=== PATIENT | male | born 1955 | race Caucasian/White ===

== ENCOUNTER 2017-12-26 16:01 | Inpatient (IN) | payer OTHER ==
[2017-12-26 19:16] VITALS: BMI 33.7
--- NOTE | 2017-12-26 22:17 | HP ---
Admission ROS [facility] - [facility] Chief Complaint: SEEKING REHAB SERVICES AFTER DETOX Allergies/Adverse Reactions: Allergies Allergy/AdvReac Type Severity Reaction Status Date / Time Fish Containing Products AdvReac Verified 12/26/17 22:19 History of Present Illness: 62 Y.O. MALE WITH LONG HX/O ALCOHOLISM HERE FOR REHAB. CLIENT WAS REFERRED BY [facility] AFTER DETOX FOR ALCOHOLISM. THIS IS CLIENTS FIRST TIME HERE. 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 DENIES HX/O SEIZURES, DT 'S SI. DOES RPEORTS HX/O BLACK OUTS. Exam Limitations: No Limitations - Ebola screening Have you traveled outside of the country in the last 21 days: No (N) Have you had contact with anyone from an Ebola affected area: No Have you been sick,other than usual withdrawal symptoms: No Do you have a fever: No - Review of Systems Constitutional: No Symptoms Reported EENT: reports: Nose Congestion Respiratory: reports: No Symptoms reported Cardiac: reports: No Symptoms Reported GI: reports: No Symptoms Reported : reports: No Symptoms Reported Musculoskeletal: reports: No Symptoms Reported Integumentary: reports: No Symptoms Reported Neuro: reports: No Symptoms reported Endocrine: reports: No Symptoms Reported Hematology: reports: No Symptoms Reported Psychiatric: reports: Depressed Other Systems: Reviewed and Negative Patient History - Patient Medical History Hx Anemia: No Hx Asthma: No Hx Chronic Obstructive Pulmonary Disease (COPD): No Hx Cancer: No Hx Cardiac Disorders: No Hx Congestive Heart Failure: No Hx Hypertension: Yes Hx Hypercholesterolemia: Yes Hx Pacemaker: No HX Cerebrovascular Accident: No Hx Seizures: No Hx Dementia: No Hx Diabetes: No Hx Gastrointestinal Disorders: No Hx Liver Disease: No Hx Genitourinary Disorders: No Hx Sexually Transmitted Disorders: No Hx Renal Disease (ESRD): No Hx Thyroid Disease: No Hx Human Immunodeficiency Virus (HIV): No Hx Hepatitis C: No Hx Depression: Yes Hx Suicide Attempt: No Hx Bipolar Disorder: No Hx Schizophrenia: No Other Medical History: DENIES - Patient Surgical History Past Surgical History: No - PPD History Previous Implant?: Yes Documented Results: Positive w/proof Implanted On Prior [facility] Admission?: No PPD to be Administered?: No - Smoking Cessation Smoking history: Former smoker Have you smoked in the past 12 months: Yes Aproximately how many cigarettes per day: 1 (LAST SMOKED 10 DAYS AGO) Cigars Per Day: 0 Hx Chewing Tobacco Use: No Initiated information on smoking cessation: Yes 'Breaking Loose' booklet given: 12/26/17 - Substance & Tx. History Hx Alcohol Use: Yes Hx Substance Use: Yes Substance Use Type: Alcohol, Cocaine Hx Substance Use Treatment: Yes ([facility]) - Substances Abused VODKA Route: Oral Frequency: 3-6 times per week Amount used: 3 PINTS/ 3 CASES OF COOLERS Age of first use: 36 Date of Last Use: 12/22/17 COCAINE Route: Inhalation Frequency: 1-2 times per week Amount used: 300 DOLLARS Age of first use: 36 Date of Last Use: 12/17/17 Family Disease History - Family Disease History Family Disease History: Other: Father (ALCOHOLISM) Admission Physical Exam [facility] - Vital Signs Vital Signs: Vital Signs - 24 hr 12/26/17 19:14 Temperature 97.7 F Pulse Rate 86 Respiratory 18 Rate Blood Pressure 132/81 - Physical General Appearance: Yes: No Apparent Distress, Appropriately Dressed, Anxious HEENTM: Yes: EOMI, Normocephalic, Normal Voice, BETSY, Pharynx Normal, Nasal Congestion Respiratory: Yes: Chest Non-Tender, Lungs Clear, Normal Breath Sounds, No Respiratory Distress, No Accessory Muscle Use Neck: Yes: No masses,lesions,Nodules, Supple, Trachea in good position Breast: Yes: Breast Exam Deferred Cardiology: Yes: Regular Rhythm, Regular Rate, S1, S2 Abdominal: Yes: Normal Bowel Sounds, Non Tender, Soft, Protuberent Genitourinary: Yes: Within Normal Limits Back: Yes: Normal Inspection Musculoskeletal: Yes: full range of Motion, Gait Steady Extremities: Yes: Normal Inspection, Normal Range of Motion, Non-Tender Neurological: Yes: paint technician II-XII NML intact, Fully Oriented, Alert Integumentary: Yes: Normal Color, Dry, Warm Lymphatic: Yes: Within Normal Limits - Diagnostic (1) Uncomplicated alcohol dependence Current Visit: Yes Status: Chronic (2) Cocaine abuse, uncomplicated Current Visit: Yes Status: Chronic (3) Nicotine abuse Current Visit: Yes Status: Suspected (4) HTN (hypertension) Current Visit: Yes Status: Chronic Qualifiers: Hypertension type: essential hypertension Qualified Code(s): I10 - Essential (primary) hypertension (5) GERD (gastroesophageal reflux disease) Current Visit: Yes Status: Chronic (6) HLD (hyperlipidemia) Current Visit: Yes Status: Chronic (7) History of positive PPD Current Visit: Yes Status: Chronic (8) Nasal sinus congestion Current Visit: Yes Status: Chronic Cleared for Admission [facility] - Detox or Rehab Detox Regimen/Protocol: Not Applicable Claeared for Rehab Admission: No [facility] Breath Alcohol Content Breath Alcohol Content: 0 Urine Drug Screen - Results Drug Screen Negative: No Urine Drug Screen Results: BZO-Benzodiazepines Inpatient Rehab Admission - Initial Determination Are CD services needed?: Yes Free of communicable disease: Yes Not in need of hospitalization: Yes - Rehab Admission Criteria Previous failed treatment: Yes Poor recovery environment: Yes Comorbidities: Yes Lacks judgement: Yes Patient is meeting Inpatient Rehab admission criteria:: Yes
[2017-12-26] MEDS ORDERED: MAG HYDROX/AL HYDROX/SIMETH 30 ML UNIT-DOSE CUP PO PRN (22:37)
[2017-12-26] MEDS ORDERED: LOPERAMIDE HCL 2 MG CAPSULE PO PRN (22:37)
[2017-12-26] MEDS ORDERED: ACETAMINOPHEN 325 MG TABLET (FP) PO PRN (22:37)
[2017-12-26] MEDS ORDERED: MAGNESIUM HYDROX 2400MG/30ML ORAL SUSPENSION 30 ML CUP PO PRN (22:37)
[2017-12-26] MEDS ORDERED: NICOTINE POLACRILEX 2 MG GUM BC PRN (22:37)
[2017-12-26] MEDS ORDERED: guaiFENesin/D-METHORPHAN HB 10 ML UNIT-DOSE CUPS PO PRN (22:37)
[2017-12-26] MEDS ORDERED: MAGNESIUM CITRATE 300 ML BOTTLE PO PRN (22:37)
[2017-12-27] MEDS: MENTHOL/PHENOL 1 EACH UD MM PRN ×2 (00:30→08:47)
[2017-12-27] MEDS: P-EPHED 60MG/TRIPROLIDI 2.5MG TABLET PO PRN ×3 (00:30→14:57)
[2017-12-27] MEDS: MELATONIN 5 MG TABLETS PO PRN ×2 (00:30→21:23)
[2017-12-27] MEDS: IBUPROFEN 400 MG TABLET (FP) PO PRN (00:30)
[2017-12-27] MEDS: GEMFIBROZIL 600 MG TABLET (FP) PO SCH ×2 (06:45→17:04)
[2017-12-27] MEDS: PRENATAL VITAMINS W/ FOLIC ACID TABLET (FP) PO SCH (09:23)
[2017-12-27] MEDS: PANTOPRAZOLE 20 MG TABLET (FP) PO SCH (09:23)
[2017-12-27] MEDS: LOSARTAN POTASSIUM 50 MG TABLET (FP) PO SCH (09:23)
[2017-12-27] MEDS: ASPIRIN 81 MG CHEWABLE TABLETS PO SCH (09:23)
[2017-12-27 10:40] LABS: URINE APPEARANCE CLEAR; URINE BILIRUBIN NEGATIVE (<2.0 mg/dL); URINE COLOR YELLOW; URINE GLUCOSE (UA) NEGATIVE (NEGATIVE); URINE KETONE NEGATIVE (NEGATIVE); URINE LEUK ESTERASE NEGATIVE (NEGATIVE); URINE NITRITE NEGATIVE (NEGATIVE); URINE PROTEIN NEGATIVE (NEGATIVE); URINE UROBILINOGEN NEGATIVE mg/dL (0.2-1.0)
[2017-12-27 10:44] LABS: HEMOGLOBIN 13.7 GM/dL (11.7-16.9); MCH 30.3 pg (25.7-33.7); MCHC 34.2 g/dl (32.0-35.9); MEAN CELL VOLUME 88.6 fl (80-96); MEAN PLT VOLUME 8.9 fl (7.5-11.1); PLATELET COUNT 294 K/MM3 (134-434); RBC 4.51 M/mm3 (4.00-5.60); RDW 14.7 % (11.9-15.9); WHITE BLOOD COUNT 9.4 K/mm3 (4.0-10.0)
[2017-12-27 10:55] LABS: CHLORIDE 106 mmol/L (98-107); POTASSIUM 4.2 mmol/L (3.5-5.1); SODIUM 140 mmol/L (136-145)
[2017-12-27 11:06] LABS: ALBUMIN 3.6 g/dl (3.4-5.0); ALK PHOS 67 U/L (45-117); BILIRUBIN,TOTAL 0.3 mg/dL (0.2-1.0); BLOOD UREA NITROGEN 17 mg/dL (7-18); CALCIUM 9.4 mg/dL (8.5-10.1); GLUCOSE,RANDOM 99 mg/dL (74-106); SGOT/AST 26 U/L (15-37); SGPT/ALT 51 U/L (12-78); TOT PROT 7.5 g/dl (6.4-8.2)
[2017-12-27 14:52] LABS: ANION GAP 12 (8-16); CO2 22 mmol/L (21-32)
[2017-12-27] MEDS: THIAMINE HCL 100 MG TABLET (FP) PO SCH (21:23)
[2017-12-28] MEDS: GEMFIBROZIL 600 MG TABLET (FP) PO SCH ×2 (06:30→16:56)
[2017-12-28] MEDS: P-EPHED 60MG/TRIPROLIDI 2.5MG TABLET PO PRN ×3 (06:31→21:10)
[2017-12-28] MEDS: PRENATAL VITAMINS W/ FOLIC ACID TABLET (FP) PO SCH (09:24)
[2017-12-28] MEDS: PANTOPRAZOLE 20 MG TABLET (FP) PO SCH (09:24)
[2017-12-28] MEDS: ASPIRIN 81 MG CHEWABLE TABLETS PO SCH (09:24)
[2017-12-28] MEDS: LOSARTAN POTASSIUM 50 MG TABLET (FP) PO SCH (09:24)
[2017-12-28] MEDS: THIAMINE HCL 100 MG TABLET (FP) PO SCH (21:09)
[2017-12-28] MEDS: MELATONIN 5 MG TABLETS PO PRN (21:10)
[2017-12-29] MEDS: GEMFIBROZIL 600 MG TABLET (FP) PO SCH ×2 (06:03→17:00)
[2017-12-29] MEDS: PANTOPRAZOLE 20 MG TABLET (FP) PO SCH (10:59)
[2017-12-29] MEDS: LOSARTAN POTASSIUM 50 MG TABLET (FP) PO SCH (10:59)
[2017-12-29] MEDS: PRENATAL VITAMINS W/ FOLIC ACID TABLET (FP) PO SCH (10:59)
[2017-12-29] MEDS: ASPIRIN 81 MG CHEWABLE TABLETS PO SCH (11:00)
[2017-12-29] MEDS: FLUoxetine HCL 20 MG CAPSULE (FP) PO SCH (16:50)
[2017-12-29] MEDS: P-EPHED 60MG/TRIPROLIDI 2.5MG TABLET PO PRN (19:06)
[2017-12-29] MEDS: MENTHOL/PHENOL 1 EACH UD MM PRN (19:06)
--- NOTE | 2017-12-29 20:16 | EKG ---
Test Reason : Blood Pressure : / mmHG Vent. Rate : 077 BPM Atrial Rate : 077 BPM P-R Int : 202 ms QRS Dur : 150 ms QT Int : 430 ms P-R-T Axes : 060 029 142 degrees QTc Int : 486 ms POOR DATA QUALITY, INTERPRETATION MAY BE ADVERSELY AFFECTED SINUS RHYTHM WITH OCCASIONAL PREMATURE VENTRICULAR COMPLEXES LEFT BUNDLE BRANCH BLOCK ABNORMAL ECG NO PREVIOUS ECGS AVAILABLE Confirmed by MD MARÍA, MARIE ([id number]) on 12/29/2017 8:16:01 PM Referred By: Confirmed By:MARIE DANIEL MD
[2017-12-29] MEDS: MELATONIN 5 MG TABLETS PO PRN (21:16)
[2017-12-29] MEDS: THIAMINE HCL 100 MG TABLET (FP) PO SCH (21:16)
[2017-12-30] MEDS: GEMFIBROZIL 600 MG TABLET (FP) PO SCH ×2 (06:04→17:28)
[2017-12-30] MEDS: P-EPHED 60MG/TRIPROLIDI 2.5MG TABLET PO PRN ×2 (06:05→21:25)
[2017-12-30] MEDS: PANTOPRAZOLE 20 MG TABLET (FP) PO SCH (09:28)
[2017-12-30] MEDS: ASPIRIN 81 MG CHEWABLE TABLETS PO SCH (09:28)
[2017-12-30] MEDS: PRENATAL VITAMINS W/ FOLIC ACID TABLET (FP) PO SCH (09:28)
[2017-12-30] MEDS: LOSARTAN POTASSIUM 50 MG TABLET (FP) PO SCH (09:29)
[2017-12-30] MEDS: FLUoxetine HCL 20 MG CAPSULE (FP) PO SCH (09:29)
--- NOTE | 2017-12-30 11:40 | HP ---
Psychiatrist Admission - Data Date of interview: 12/30/17 Admission source: [facility] Identifying data: Patient is a 62 year old male, without kids, unemployed,domiciled, and supported by [facility]. This is patient's first admission to rehab at [facility]. Pt. admitted for alcohol dependence. Medical History: hypertension, hypercholesterolemia, GERD Psychiatric History: Patient's first psychiatric contact was in 2002 in an outpatient rehab program. Pt. was started on paxil and reports taking it for three years. Pt. has also taken cymbalta, celexa, and zoloft. Patient reports h/ o seeing multiple psychiatrist when enrolled in outpatient rehab programs. Patient was started on prozac 40mg at [facility] three years ago and continues to accept medication today. Pt. receives refills from detox and rehab facilities. Patient reports one psychiatric hospitalization at [facility] in 2018 for suicidal ideation. Diagnosis of MDD. Patient's father at the age of 33 due to cirrhosis of the liver. Stepdad in 2008 of a heart attack and mother in 2010 of cancer. Pt. denies h/o suicide attempt. Physical/Sexual Abuse/Trauma History: Denies. Vital Signs: Vital Signs - 24 hr 12/30/17 12/30/17 12/30/17 00:30 03:30 06:55 Temperature 97.8 F Pulse Rate 76 Respiratory 18 20 20 Rate Blood Pressure 142/90 12/30/17 10:00 Temperature Pulse Rate 75 Respiratory 18 Rate Blood Pressure 118/71 Allergies/Adverse Reactions: Allergies Allergy/AdvReac Type Severity Reaction Status Date / Time Fish Containing Products AdvReac Verified 12/26/17 22:19 Date of last physical exam: 12/26/17 Concur with the findings of this exam: Yes - Substance Abuse/Tx History Hx Alcohol Use: Yes (3 pints daily.) Hx Substance Use: Yes (Cocaine- $80 per month) Substance Use Type: Cocaine Hx Substance Use Treatment: Yes ([facility] in August of 2017) Mental Status Exam - Mental Status Exam Alert and Oriented to: Time, Place, Person Cognitive Function: Good Patient Appearance: Well Groomed Mood: Hopeful Affect: Mood Congruent Patient Behavior: Cooperative Speech Pattern: Appropriate Voice Loudness: Normal Thought Process: Intact, Goal Oriented Thought Disorder: Not Present Hallucinations: Denies Suicidal Ideation: Denies Homicidal Ideation: Denies Insight/Judgement: Poor Sleep: Fair Appetite: Good Muscle strength/Tone: Normal Gait/Station: Normal Psychiatric Findings - Problem List ([place] 1, 2,3) (1) Cocaine dependence Current Visit: Yes Status: Chronic (2) Uncomplicated alcohol dependence Current Visit: Yes Status: Chronic (3) GERD (gastroesophageal reflux disease) Current Visit: Yes Status: Chronic (4) HLD (hyperlipidemia) Current Visit: Yes Status: Chronic (5) HTN (hypertension) Current Visit: Yes Status: Chronic Qualifiers: Hypertension type: essential hypertension Qualified Code(s): I10 - Essential (primary) hypertension (6) History of positive PPD Current Visit: Yes Status: Chronic (7) MDD (major depressive disorder) Current Visit: Yes Status: Chronic Comment: History. (8) Substance induced mood disorder Current Visit: Yes Status: Acute - Initial Treatment Plan Initial Treatment Plan: Psychoeducation provided. Rehab in progress. Prozac 40mg ordered. Benefits and side effects discussed.
[2017-12-30] MEDS: hydrOXYzine PAMOATE 50 MG CAPSULE (FP) PO PRN (21:25)
[2017-12-30] MEDS: THIAMINE HCL 100 MG TABLET (FP) PO SCH (21:25)
[2017-12-30] MEDS: MELATONIN 5 MG TABLETS PO PRN (21:25)
[2017-12-30] MEDS: MENTHOL/PHENOL 1 EACH UD MM PRN (21:25)
[2017-12-31] MEDS: GEMFIBROZIL 600 MG TABLET (FP) PO SCH ×2 (06:29→16:45)
[2017-12-31] MEDS: P-EPHED 60MG/TRIPROLIDI 2.5MG TABLET PO PRN (06:30)
[2017-12-31] MEDS: PANTOPRAZOLE 20 MG TABLET (FP) PO SCH (09:46)
[2017-12-31] MEDS: PRENATAL VITAMINS W/ FOLIC ACID TABLET (FP) PO SCH (09:46)
[2017-12-31] MEDS: LOSARTAN POTASSIUM 50 MG TABLET (FP) PO SCH (09:47)
[2017-12-31] MEDS: FLUoxetine HCL 20 MG CAPSULE (FP) PO SCH (09:47)
[2017-12-31] MEDS: ASPIRIN 81 MG CHEWABLE TABLETS PO SCH (09:47)
[2017-12-31] MEDS: MELATONIN 5 MG TABLETS PO PRN (21:43)
[2017-12-31] MEDS: THIAMINE HCL 100 MG TABLET (FP) PO SCH (21:43)
[2017-12-31] MEDS: hydrOXYzine PAMOATE 50 MG CAPSULE (FP) PO PRN (21:43)
[2017-12-31] MEDS: IBUPROFEN 400 MG TABLET (FP) PO PRN (21:43)
[2018-01-01] MEDS: P-EPHED 60MG/TRIPROLIDI 2.5MG TABLET PO PRN (06:20)
[2018-01-01] MEDS: GEMFIBROZIL 600 MG TABLET (FP) PO SCH ×2 (06:20→17:01)
[2018-01-01] MEDS: PANTOPRAZOLE 20 MG TABLET (FP) PO SCH (09:40)
[2018-01-01] MEDS: ASPIRIN 81 MG CHEWABLE TABLETS PO SCH (09:40)
[2018-01-01] MEDS: PRENATAL VITAMINS W/ FOLIC ACID TABLET (FP) PO SCH (09:40)
[2018-01-01] MEDS: LOSARTAN POTASSIUM 50 MG TABLET (FP) PO SCH (09:41)
[2018-01-01] MEDS: FLUoxetine HCL 20 MG CAPSULE (FP) PO SCH (09:41)
--- NOTE | 2018-01-01 14:04 | PN ---
[facility] Progress Note Note: Patient requested HIV test , report dry eyes and seasonal allergies, denies foreign body sensation, visual changes, eye pain or discharge Vital Signs Temperature 97.4 F L 01/01/18 06:48 Pulse Rate 73 01/01/18 10:00 Respiratory Rate 18 01/01/18 10:00 Blood Pressure 133/75 01/01/18 10:00 O2 Sat by Pulse Oximetry (%) Laboratory Last Values WBC 9.4 K/mm3 (4.0-10.0) 12/27/17 07:50 RBC 4.51 M/mm3 (4.00-5.60) 12/27/17 07:50 Hgb 13.7 GM/dL (11.7-16.9) 12/27/17 07:50 Hct 40.0 % (35.4-49) 12/27/17 07:50 MCV 88.6 fl (80-96) 12/27/17 07:50 MCH 30.3 pg (25.7-33.7) 12/27/17 07:50 MCHC 34.2 g/dl (32.0-35.9) 12/27/17 07:50 RDW 14.7 % (11.9-15.9) 12/27/17 07:50 Plt Count 294 K/MM3 (134-434) 12/27/17 07:50 MPV 8.9 fl (7.5-11.1) 12/27/17 07:50 Sodium 140 mmol/L (136-145) 12/27/17 07:50 Potassium 4.2 mmol/L (3.5-5.1) 12/27/17 07:50 Chloride 106 mmol/L (98-107) 12/27/17 07:50 Carbon Dioxide 22 mmol/L (21-32) 12/27/17 07:50 Anion Gap 12 (8-16) 12/27/17 07:50 BUN 17 mg/dL (7-18) 12/27/17 07:50 Creatinine 1.0 mg/dL (0.7-1.3) 12/27/17 07:50 Creat Clearance w eGFR > 60 (>60) 12/27/17 07:50 Random Glucose 99 mg/dL (74-106) 12/27/17 07:50 Calcium 9.4 mg/dL (8.5-10.1) 12/27/17 07:50 Total Bilirubin 0.3 mg/dL (0.2-1.0) 12/27/17 07:50 AST 26 U/L (15-37) 12/27/17 07:50 ALT 51 U/L (12-78) 12/27/17 07:50 Alkaline Phosphatase 67 U/L (45-117) 12/27/17 07:50 Total Protein 7.5 g/dl (6.4-8.2) 12/27/17 07:50 Albumin 3.6 g/dl (3.4-5.0) 12/27/17 07:50 Urine Color Yellow 12/27/17 08:00 Urine Appearance Clear 12/27/17 08:00 Urine pH 5.0 (5.0-8.0) 12/27/17 08:00 Ur Specific [place] 1.018 (1.001-1.035) 12/27/17 08:00 Urine Protein Negative (NEGATIVE) 12/27/17 08:00 Urine Glucose (UA) Negative (NEGATIVE) 12/27/17 08:00 Urine Ketones Negative (NEGATIVE) 12/27/17 08:00 Urine Blood Negative (NEGATIVE) 12/27/17 08:00 Urine Nitrite Negative (NEGATIVE) 12/27/17 08:00 Urine Bilirubin Negative (<2.0 mg/dL) 12/27/17 08:00 Urine Urobilinogen Negative mg/dL (0.2-1.0) 12/27/17 08:00 Ur Leukocyte Esterase Negative (NEGATIVE) 12/27/17 08:00 RPR Titer Nonreactive (NONREACTIVE) 12/27/17 07:50 A/P AOx3 no distress EENT normal limits no adventitious breath sounds ambulating in the unit - seasonal allergies plan: visine PRN increase fluids continue to monitor
[2018-01-01] MEDS: THIAMINE HCL 100 MG TABLET (FP) PO SCH (21:32)
[2018-01-01] MEDS: MELATONIN 5 MG TABLETS PO PRN (21:33)
[2018-01-02] MEDS: GEMFIBROZIL 600 MG TABLET (FP) PO SCH ×2 (06:01→16:30)
[2018-01-02] MEDS: PRENATAL VITAMINS W/ FOLIC ACID TABLET (FP) PO SCH (09:51)
[2018-01-02] MEDS: FLUoxetine HCL 20 MG CAPSULE (FP) PO SCH (09:51)
[2018-01-02] MEDS: LOSARTAN POTASSIUM 50 MG TABLET (FP) PO SCH (09:52)
[2018-01-02] MEDS: PANTOPRAZOLE 20 MG TABLET (FP) PO SCH (09:52)
[2018-01-02] MEDS: TETRAHYDROZOLINE HCL EYE DROPS OU PRN ×2 (09:52→21:33)
[2018-01-02] MEDS: ASPIRIN 81 MG CHEWABLE TABLETS PO SCH (09:52)
[2018-01-02] MEDS: MELATONIN 5 MG TABLETS PO PRN (21:02)
[2018-01-02] MEDS: THIAMINE HCL 100 MG TABLET (FP) PO SCH (21:02)
[2018-01-02] MEDS: P-EPHED 60MG/TRIPROLIDI 2.5MG TABLET PO PRN (21:03)
[2018-01-03] MEDS: GEMFIBROZIL 600 MG TABLET (FP) PO SCH ×2 (05:59→16:57)
[2018-01-03] MEDS: P-EPHED 60MG/TRIPROLIDI 2.5MG TABLET PO PRN (06:01)
[2018-01-03] MEDS: FLUoxetine HCL 20 MG CAPSULE (FP) PO SCH (09:32)
[2018-01-03] MEDS: PANTOPRAZOLE 20 MG TABLET (FP) PO SCH (09:32)
[2018-01-03] MEDS: PRENATAL VITAMINS W/ FOLIC ACID TABLET (FP) PO SCH (09:32)
[2018-01-03] MEDS: LOSARTAN POTASSIUM 50 MG TABLET (FP) PO SCH (09:32)
[2018-01-03] MEDS: ASPIRIN 81 MG CHEWABLE TABLETS PO SCH (09:32)
[2018-01-03] MEDS: TETRAHYDROZOLINE HCL EYE DROPS OU PRN (09:34)
[2018-01-03] MEDS: THIAMINE HCL 100 MG TABLET (FP) PO SCH (21:07)
[2018-01-03] MEDS: MELATONIN 5 MG TABLETS PO PRN (21:07)
[2018-01-04] MEDS: GEMFIBROZIL 600 MG TABLET (FP) PO SCH ×2 (06:10→17:00)
[2018-01-04] MEDS: P-EPHED 60MG/TRIPROLIDI 2.5MG TABLET PO PRN ×2 (06:11→21:18)
[2018-01-04] MEDS: FLUoxetine HCL 20 MG CAPSULE (FP) PO SCH (09:47)
[2018-01-04] MEDS: LOSARTAN POTASSIUM 50 MG TABLET (FP) PO SCH (09:47)
[2018-01-04] MEDS: PRENATAL VITAMINS W/ FOLIC ACID TABLET (FP) PO SCH (09:47)
[2018-01-04] MEDS: TETRAHYDROZOLINE HCL EYE DROPS OU PRN ×2 (09:48→21:19)
[2018-01-04] MEDS: PANTOPRAZOLE 20 MG TABLET (FP) PO SCH (09:48)
[2018-01-04] MEDS: ASPIRIN 81 MG CHEWABLE TABLETS PO SCH (09:48)
[2018-01-04] MEDS: THIAMINE HCL 100 MG TABLET (FP) PO SCH (21:18)
[2018-01-04] MEDS: MELATONIN 5 MG TABLETS PO PRN (21:18)
[2018-01-05] MEDS: GEMFIBROZIL 600 MG TABLET (FP) PO SCH ×2 (06:05→16:40)
[2018-01-05] MEDS: P-EPHED 60MG/TRIPROLIDI 2.5MG TABLET PO PRN (06:05)
[2018-01-05] MEDS ORDERED: PT OWN MED DRAWER 7, Y5N ONE ×2 (08:30→21:13)
[2018-01-05] MEDS: PANTOPRAZOLE 20 MG TABLET (FP) PO SCH (09:37)
[2018-01-05] MEDS: PRENATAL VITAMINS W/ FOLIC ACID TABLET (FP) PO SCH (09:37)
[2018-01-05] MEDS: FLUoxetine HCL 20 MG CAPSULE (FP) PO SCH (09:38)
[2018-01-05] MEDS: ASPIRIN 81 MG CHEWABLE TABLETS PO SCH (09:38)
[2018-01-05] MEDS: TETRAHYDROZOLINE HCL EYE DROPS OU PRN (09:39)
[2018-01-05] MEDS: LOSARTAN POTASSIUM 50 MG TABLET (FP) PO SCH (10:36)
[2018-01-05] MEDS: THIAMINE HCL 100 MG TABLET (FP) PO SCH (21:13)
[2018-01-05] MEDS: MELATONIN 5 MG TABLETS PO PRN (21:13)
[2018-01-06] MEDS: GEMFIBROZIL 600 MG TABLET (FP) PO SCH ×2 (06:22→17:03)
[2018-01-06] MEDS: P-EPHED 60MG/TRIPROLIDI 2.5MG TABLET PO PRN ×2 (06:22→21:36)
[2018-01-06] MEDS: LOSARTAN POTASSIUM 50 MG TABLET (FP) PO SCH (09:33)
[2018-01-06] MEDS: ASPIRIN 81 MG CHEWABLE TABLETS PO SCH (09:33)
[2018-01-06] MEDS: PRENATAL VITAMINS W/ FOLIC ACID TABLET (FP) PO SCH (09:33)
[2018-01-06] MEDS: FLUoxetine HCL 20 MG CAPSULE (FP) PO SCH (09:33)
[2018-01-06] MEDS: PANTOPRAZOLE 20 MG TABLET (FP) PO SCH (09:33)
[2018-01-06] MEDS: THIAMINE HCL 100 MG TABLET (FP) PO SCH (21:35)
[2018-01-06] MEDS: MELATONIN 5 MG TABLETS PO PRN (21:35)
[2018-01-07] MEDS: P-EPHED 60MG/TRIPROLIDI 2.5MG TABLET PO PRN (06:33)
[2018-01-07] MEDS: GEMFIBROZIL 600 MG TABLET (FP) PO SCH ×2 (06:33→17:11)
[2018-01-07] MEDS: LOSARTAN POTASSIUM 50 MG TABLET (FP) PO SCH (09:40)
[2018-01-07] MEDS: FLUoxetine HCL 20 MG CAPSULE (FP) PO SCH (09:40)
[2018-01-07] MEDS: PANTOPRAZOLE 20 MG TABLET (FP) PO SCH (09:40)
[2018-01-07] MEDS: ASPIRIN 81 MG CHEWABLE TABLETS PO SCH (09:40)
[2018-01-07] MEDS: PRENATAL VITAMINS W/ FOLIC ACID TABLET (FP) PO SCH (09:40)
[2018-01-07] MEDS: TETRAHYDROZOLINE HCL EYE DROPS OU PRN (09:42)
[2018-01-07] MEDS: MELATONIN 5 MG TABLETS PO PRN (21:38)
[2018-01-07] MEDS: THIAMINE HCL 100 MG TABLET (FP) PO SCH (21:38)
[2018-01-08] MEDS: P-EPHED 60MG/TRIPROLIDI 2.5MG TABLET PO PRN (05:56)
[2018-01-08] MEDS: GEMFIBROZIL 600 MG TABLET (FP) PO SCH ×2 (06:51→16:59)
[2018-01-08] MEDS: FLUoxetine HCL 20 MG CAPSULE (FP) PO SCH (09:30)
[2018-01-08] MEDS: PANTOPRAZOLE 20 MG TABLET (FP) PO SCH (09:30)
[2018-01-08] MEDS: PRENATAL VITAMINS W/ FOLIC ACID TABLET (FP) PO SCH (09:30)
[2018-01-08] MEDS: ASPIRIN 81 MG CHEWABLE TABLETS PO SCH (09:30)
[2018-01-08] MEDS: LOSARTAN POTASSIUM 50 MG TABLET (FP) PO SCH (09:32)
[2018-01-08] MEDS: TETRAHYDROZOLINE HCL EYE DROPS OU PRN (09:32)
[2018-01-08] MEDS: NALTREXONE HCL 50 MG TABLET PO SCH (11:56)
--- NOTE | 2018-01-08 12:25 | PN ---
Psychiatric Progress Note Vital Signs: Vital Signs Period Temp Pulse Resp BP Sys/Cespedes Pulse Ox Last 24 Hr 97.6 F 68-73 18-20 132-139/79-83 Date of Session: 01/08/18 Chief Complaint:: Medication Management HPI: Patient addressing Alcohol and Cocaine Dependence comorbid with MDD and substance-Induced Mood Disorder ROS: HTN, HLD, GERD, PPD+ Current Medications: Active Medications Generic Name Dose Route Start Last Admin Trade Name Freq PRN Reason Stop Dose Admin Acetaminophen 650 mg 12/26/17 22:37 Tylenol - PO Q4H PRN FEVER Al Hydroxide/Mg Hydroxide 30 ml 12/26/17 22:37 Mylanta Oral Suspension - PO Q6H PRN DYSPEPSIA Aspirin 81 mg 12/27/17 10:00 01/08/18 09:30 Asa - PO 81 mg DAILY MARTA Administration Eucalyptus/Menthol/Phenol/Sorbitol 1 each 12/26/17 22:37 12/30/17 21:25 Cepastat Lozenge - MM 1 each Q4H PRN Administration SORE THROAT Fluoxetine HCl 40 mg 12/29/17 16:45 01/08/18 09:30 Prozac - PO 40 mg DAILY MARTA Administration Gemfibrozil 600 mg 12/27/17 07:00 01/08/18 06:51 Lopid - PO 600 mg BIDAC MARTA Administration Guaifenesin 10 ml 12/26/17 22:37 Robitussin Dm - PO Q6H PRN COUGH Hydroxyzine Pamoate 50 mg 12/26/17 22:37 12/31/17 21:43 Vistaril - PO 50 mg Q4H PRN Administration AGITATION Ibuprofen 400 mg 12/26/17 22:37 12/31/17 21:43 Motrin - PO 400 mg Q6H PRN Administration Pain level 4-6 Loperamide HCl 4 mg 12/26/17 22:37 Imodium - PO Q6H PRN DIARRHEA Losartan Potassium 100 mg 12/27/17 10:00 01/08/18 09:32 Cozaar - PO 100 mg DAILY MARTA Administration Magnesium Citrate 300 ml 12/26/17 22:37 Citroma - PO Q48H PRN CONSTIPATION Magnesium Hydroxide 30 ml 12/26/17 22:37 Milk Of Magnesia - PO DAILY PRN CONSTIPATION Melatonin 5 mg 12/26/17 22:00 01/07/18 21:38 Melatonin PO 5 mg HS PRN Administration INSOMNIA Naltrexone HCl 50 mg 01/08/18 11:30 Revia - PO DAILY MARTA Nicotine Polacrilex 2 mg 12/26/17 22:37 Nicorette Gum - BC Q2H PRN NICOTINE REPLACEMENT RX Pantoprazole Sodium 20 mg 12/27/17 10:00 01/08/18 09:30 Protonix - PO 20 mg DAILY MARTA Administration Multivit/Folic Acid/Iron 1 tab 12/27/17 10:00 01/08/18 09:30 Vitamins ([facility]) - PO 1 tab DAILY MARTA Administration Pseudoephedrine/Triprolidine 1 combo 12/26/17 22:37 01/08/18 05:56 Actifed - PO 1 combo TID PRN Administration NASAL CONGESTION Tetrahydrozoline HCl 1 drop 01/01/18 14:03 01/08/18 09:32 Visine - OU 1 drop BID PRN Administration dry eyes Thiamine HCl 100 mg 12/27/17 22:00 01/07/18 21:38 Vitamin B1 - PO 100 mg HS MARTA Administration Medication(s) Change(s): Start Naltrezone oral(Revia) 50 mg po daily x 3 days then Vivitrol mg IM once on 01/12/18 Current Side Effect: No Lab tests ordered: Yes Lab tests reviewed: Yes Provider note:: Patient requested on medication management to manage his craving for alcohol. Told play writer that during nursing education group the other day, he learned about Vivitrol injection as a way to minimize his craving for alcohol. Medication management was fully discussed with patient including benefit vs risk of medication. He understand that he has to take Naltrexone oral (Revia) first for 2 days at least before proceeding with Naltrexone parenteral( Vivitrol). He is not on any oipiod derivative and his LFT's are wnl. He was provided with a pamphlet for his own education about the product Total face to face time:: 25 Mental Status Exam - Mental Status Exam Alert and Oriented to: Time, Place, Person Cognitive Function: Fair Patient Appearance: Well Groomed Mood: Hopeful, Euthymic Affect: Appropriate Patient Behavior: Cooperative Speech Pattern: Clear Voice Loudness: Normal Thought Process: Intact, Goal Oriented Thought Disorder: Not Present Hallucinations: Denies Suicidal Ideation: Denies Homicidal Ideation: Denies Insight/Judgement: Fair Sleep: Fair Appetite: Good Muscle strength/Tone: Normal Gait/Station: Normal Psychiatric Treatment Plan - Problem List (1) Alcohol dependence Current Visit: Yes (2) Cocaine dependence Current Visit: Yes (3) MDD (major depressive disorder) Current Visit: Yes Comment: History. (4) Substance induced mood disorder Current Visit: Yes (5) GERD (gastroesophageal reflux disease) Current Visit: Yes (6) HLD (hyperlipidemia) Current Visit: Yes (7) HTN (hypertension) Current Visit: Yes Qualifiers: Hypertension type: essential hypertension Qualified Code(s): I10 - Essential (primary) hypertension (8) History of positive PPD Current Visit: Yes Initial treatment plan: 1) Start Naltrexone oral(Revia) 50 mg po daily x 3 days then Vivitrol 380 mg IM once on 01/12/18. 2) Monitor progress
[2018-01-08] MEDS: MELATONIN 5 MG TABLETS PO PRN (21:42)
[2018-01-08] MEDS: THIAMINE HCL 100 MG TABLET (FP) PO SCH (21:42)
[2018-01-09] MEDS: GEMFIBROZIL 600 MG TABLET (FP) PO SCH ×2 (06:22→16:59)
[2018-01-09] MEDS: P-EPHED 60MG/TRIPROLIDI 2.5MG TABLET PO PRN ×2 (06:23→21:28)
[2018-01-09] MEDS: LOSARTAN POTASSIUM 50 MG TABLET (FP) PO SCH (09:54)
[2018-01-09] MEDS: PANTOPRAZOLE 20 MG TABLET (FP) PO SCH (09:54)
[2018-01-09] MEDS: ASPIRIN 81 MG CHEWABLE TABLETS PO SCH (09:54)
[2018-01-09] MEDS: NALTREXONE HCL 50 MG TABLET PO SCH (09:54)
[2018-01-09] MEDS: PRENATAL VITAMINS W/ FOLIC ACID TABLET (FP) PO SCH (09:54)
[2018-01-09] MEDS: FLUoxetine HCL 20 MG CAPSULE (FP) PO SCH (09:54)
--- NOTE | 2018-01-09 15:42 | PN ---
[facility] Progress Note Note: Vital Signs Temperature 97.6 F 01/09/18 06:40 Pulse Rate 69 01/09/18 10:00 Respiratory Rate 18 01/09/18 10:00 Blood Pressure 126/69 01/09/18 10:00 O2 Sat by Pulse Oximetry (%) Patient scheduled for d/c 01/12/18. Home meds sent to preferred pharmacy. Patient to follow up with primary care provider 1-2 weeks post discharge.
[2018-01-09] MEDS: MELATONIN 5 MG TABLETS PO PRN (21:27)
[2018-01-09] MEDS: THIAMINE HCL 100 MG TABLET (FP) PO SCH (21:27)
[2018-01-10] MEDS: GEMFIBROZIL 600 MG TABLET (FP) PO SCH ×2 (06:06→16:54)
[2018-01-10] MEDS: P-EPHED 60MG/TRIPROLIDI 2.5MG TABLET PO PRN ×2 (06:06→22:03)
[2018-01-10] MEDS: LOSARTAN POTASSIUM 50 MG TABLET (FP) PO SCH (09:28)
[2018-01-10] MEDS: PANTOPRAZOLE 20 MG TABLET (FP) PO SCH (09:28)
[2018-01-10] MEDS: NALTREXONE HCL 50 MG TABLET PO SCH (09:28)
[2018-01-10] MEDS: PRENATAL VITAMINS W/ FOLIC ACID TABLET (FP) PO SCH (09:28)
[2018-01-10] MEDS: ASPIRIN 81 MG CHEWABLE TABLETS PO SCH (09:28)
[2018-01-10] MEDS: FLUoxetine HCL 20 MG CAPSULE (FP) PO SCH (09:28)
[2018-01-10] MEDS: THIAMINE HCL 100 MG TABLET (FP) PO SCH (22:02)
[2018-01-10] MEDS: MELATONIN 5 MG TABLETS PO PRN (22:02)
[2018-01-11] MEDS: P-EPHED 60MG/TRIPROLIDI 2.5MG TABLET PO PRN (06:18)
[2018-01-11] MEDS: GEMFIBROZIL 600 MG TABLET (FP) PO SCH ×2 (06:18→16:53)
[2018-01-11] MEDS: ASPIRIN 81 MG CHEWABLE TABLETS PO SCH (09:33)
[2018-01-11] MEDS: NALTREXONE HCL 50 MG TABLET PO SCH (09:33)
[2018-01-11] MEDS: PANTOPRAZOLE 20 MG TABLET (FP) PO SCH (09:33)
[2018-01-11] MEDS: LOSARTAN POTASSIUM 50 MG TABLET (FP) PO SCH (09:33)
[2018-01-11] MEDS: PRENATAL VITAMINS W/ FOLIC ACID TABLET (FP) PO SCH (09:33)
[2018-01-11] MEDS: FLUoxetine HCL 20 MG CAPSULE (FP) PO SCH (09:33)
--- NOTE | 2018-01-11 15:53 | PN ---
Psychiatric Progress Note Vital Signs: Vital Signs Period Temp Pulse Resp BP Sys/Cespedes Pulse Ox Last 24 Hr 97.8 F 64-71 18-18 146-152/88-90 Date of Session: 01/11/18 Chief Complaint:: Discharge Note HPI: Patient addressing alcohol and cocaine dependence comorbid with MDD and Substance-Induced Mood Disorder ROS: HTN, GERD, PPD+ Current Medications: Active Medications Generic Name Dose Route Start Last Admin Trade Name Freq PRN Reason Stop Dose Admin Acetaminophen 650 mg 12/26/17 22:37 Tylenol - PO Q4H PRN FEVER Al Hydroxide/Mg Hydroxide 30 ml 12/26/17 22:37 Mylanta Oral Suspension - PO Q6H PRN DYSPEPSIA Aspirin 81 mg 12/27/17 10:00 01/11/18 09:33 Asa - PO 81 mg DAILY MARTA Administration Eucalyptus/Menthol/Phenol/Sorbitol 1 each 12/26/17 22:37 12/30/17 21:25 Cepastat Lozenge - MM 1 each Q4H PRN Administration SORE THROAT Fluoxetine HCl 40 mg 12/29/17 16:45 01/11/18 09:33 Prozac - PO 40 mg DAILY MARTA Administration Gemfibrozil 600 mg 12/27/17 07:00 01/11/18 06:18 Lopid - PO 600 mg BIDAC MARTA Administration Guaifenesin 10 ml 12/26/17 22:37 Robitussin Dm - PO Q6H PRN COUGH Hydroxyzine Pamoate 50 mg 12/26/17 22:37 12/31/17 21:43 Vistaril - PO 50 mg Q4H PRN Administration AGITATION Ibuprofen 400 mg 12/26/17 22:37 12/31/17 21:43 Motrin - PO 400 mg Q6H PRN Administration Pain level 4-6 Loperamide HCl 4 mg 12/26/17 22:37 Imodium - PO Q6H PRN DIARRHEA Losartan Potassium 100 mg 12/27/17 10:00 01/11/18 09:33 Cozaar - PO 100 mg DAILY MARTA Administration Magnesium Citrate 300 ml 12/26/17 22:37 Citroma - PO Q48H PRN CONSTIPATION Magnesium Hydroxide 30 ml 12/26/17 22:37 Milk Of Magnesia - PO DAILY PRN CONSTIPATION Melatonin 5 mg 12/26/17 22:00 01/10/18 22:02 Melatonin PO 5 mg HS PRN Administration INSOMNIA Nicotine Polacrilex 2 mg 12/26/17 22:37 Nicorette Gum - BC Q2H PRN NICOTINE REPLACEMENT RX Pantoprazole Sodium 20 mg 12/27/17 10:00 01/11/18 09:33 Protonix - PO 20 mg DAILY MARTA Administration Multivit/Folic Acid/Iron 1 tab 12/27/17 10:00 01/11/18 09:33 Vitamins ([facility]) - PO 1 tab DAILY MARTA Administration Pseudoephedrine/Triprolidine 1 combo 12/26/17 22:37 01/11/18 06:18 Actifed - PO 1 combo TID PRN Administration NASAL CONGESTION Tetrahydrozoline HCl 1 drop 01/01/18 14:03 01/08/18 09:32 Visine - OU 1 drop BID PRN Administration dry eyes Thiamine HCl 100 mg 12/27/17 22:00 01/10/18 22:02 Vitamin B1 - PO 100 mg HS MARTA Administration Current Side Effect: No Lab tests ordered: Yes Lab tests reviewed: Yes Provider note:: Patient will complete this program on 01/12/18. He has met his treatment goals and will continue to address his issues in outpatient treatment at [facility]. Told ad copy writer that from his participation in this program, he has learned the importsance of making meetings and have a sponsor. He responded well to Prozac 40 mg po daily. Script for 30 days supply of that medication will be electronicaly transmitted to [facility] pharmacy at [address] [place] [address]. He is stable for discharge on 01/12/18 Total face to face time:: 35 Mental Status Exam - Mental Status Exam Alert and Oriented to: Time, Place, Person Cognitive Function: Fair Patient Appearance: Well Groomed Mood: Hopeful, Euthymic Affect: Appropriate Patient Behavior: Cooperative Speech Pattern: Clear Voice Loudness: Normal Thought Process: Intact, Goal Oriented Thought Disorder: Not Present Hallucinations: Denies Suicidal Ideation: Denies Homicidal Ideation: Denies Insight/Judgement: Fair Sleep: Fair Appetite: Good Muscle strength/Tone: Normal Gait/Station: Normal Psychiatric Treatment Plan - Problem List (1) Alcohol dependence Current Visit: Yes (2) Cocaine dependence Current Visit: Yes (3) MDD (major depressive disorder) Current Visit: Yes Comment: History. (4) Substance induced mood disorder Current Visit: Yes (5) GERD (gastroesophageal reflux disease) Current Visit: Yes (6) HLD (hyperlipidemia) Current Visit: Yes (7) HTN (hypertension) Current Visit: Yes Qualifiers: Hypertension type: essential hypertension Qualified Code(s): I10 - Essential (primary) hypertension (8) History of positive PPD Current Visit: Yes Initial treatment plan: Patient will be discharged tomorrow and referred to [facility] for outpatient treatment
[2018-01-11] MEDS: MELATONIN 5 MG TABLETS PO PRN (21:26)
[2018-01-11] MEDS: THIAMINE HCL 100 MG TABLET (FP) PO SCH (21:26)
[2018-01-12] MEDS: GEMFIBROZIL 600 MG TABLET (FP) PO SCH (06:20)
[2018-01-12 06:35] VITALS: TEMP 98
[2018-01-12] MEDS ORDERED: NALTREXONE MICROSPHERES (VIVITROL) 380 MG DISP.SYRIN IM ONE (09:00)
[2018-01-12] MEDS: PANTOPRAZOLE 20 MG TABLET (FP) PO SCH (09:54)
[2018-01-12] MEDS: FLUoxetine HCL 20 MG CAPSULE (FP) PO SCH (09:54)
[2018-01-12] MEDS: PRENATAL VITAMINS W/ FOLIC ACID TABLET (FP) PO SCH (09:54)
[2018-01-12] MEDS: LOSARTAN POTASSIUM 50 MG TABLET (FP) PO SCH (09:55)
[2018-01-12] MEDS: ASPIRIN 81 MG CHEWABLE TABLETS PO SCH (09:55)
[2018-01-12 13:10] VITALS: BP 157/97; PULSE 86
== END 2018-01-12 12:30 | disposition home or self-care (01) | DRG 895 ==
LOC: YASAS 16:01 → Y3W 22:14
PROVIDERS: ADMIT Psychiatry & Neurology Psychiatry; ATTEND Psychiatry & Neurology Psychiatry
PROC: HZ42ZZZ Group Counseling for Substance Abuse Treatment, Cognitive-Behavioral (ICD-10-PCS; principal; 2017-12-26)
DX: F10.20 Alcohol dependence, uncomplicated (principal); F14.20 Cocaine dependence, uncomplicated; F33.9 Major depressive disorder, recurrent, unspecified; F19.24 Other psychoactive substance dependence with psychoactive substance-induced mood disorder; E78.5 Hyperlipidemia, unspecified; I10 Essential (primary) hypertension; K21.9 Gastro-esophageal reflux disease without esophagitis; R76.11 Nonspecific reaction to tuberculin skin test without active tuberculosis; J30.2 Other seasonal allergic rhinitis; Z87.891 Personal history of nicotine dependence
CPT/HCPCS: 36415; 80053; 81003; 85027; 86593; 87389; 93005; 93010; J2315

== ENCOUNTER 2020-08-23 16:08 | Inpatient (IN) | payer OTHER ==
[2020-08-23 17:48] VITALS: BMI 33.3
[2020-08-23] MEDS ORDERED: MAG HYDROX/AL HYDROX/SIMETH 30 ML UNIT-DOSE CUP PO PRN (19:41)
[2020-08-23] MEDS ORDERED: MENTHOL/PHENOL 1 EACH UD MM PRN (19:41)
[2020-08-23] MEDS ORDERED: ONDANSETRON *ODT* 4 MG TABLET SL PRN (19:41)
[2020-08-23] MEDS ORDERED: ACETAMINOPHEN 325 MG TABLET (FP) PO PRN (19:41)
[2020-08-23] MEDS ORDERED: MAGNESIUM HYDROX 2400MG/30ML ORAL SUSPENSION 30 ML CUP PO PRN (19:41)
[2020-08-23] MEDS ORDERED: NICOTINE POLACRILEX 2 MG GUM BUC PRN (19:41)
[2020-08-23] MEDS ORDERED: IBUPROFEN 400 MG TABLET (FP) PO PRN (19:41)
[2020-08-23] MEDS ORDERED: BISMUTH SUBSALICYLATE 524 MG/30 ML UD PO PRN (19:41)
[2020-08-23] MEDS ORDERED: METHOCARBAMOL 500 MG TABLET PO PRN (19:41)
[2020-08-23] MEDS ORDERED: MAGNESIUM CITRATE 300 ML BOTTLE PO PRN (19:41)
[2020-08-23] MEDS ORDERED: diazePAM 5 MG TABLET PO PRN (19:45)
[2020-08-23] MEDS: THIAMINE HCL 100 MG TABLET (FP) PO SCH (22:50)
[2020-08-23] MEDS: MELATONIN 5 MG TABLETS PO SCH (22:51)
[2020-08-23] MEDS: hydrOXYzine PAMOATE 25 MG CAPSULE (FP) PO SCH (22:51)
[2020-08-23] MEDS: diazePAM 5 MG TABLET PO SCH (23:05)
[2020-08-24] MEDS: diazePAM 5 MG TABLET PO SCH ×4 (05:17→22:06)
[2020-08-24] MEDS: hydrOXYzine PAMOATE 25 MG CAPSULE (FP) PO SCH ×5 (05:17→22:09)
[2020-08-24] MEDS: PRENATAL VITAMINS W/ FOLIC ACID TABLET (FP) PO SCH (10:10)
[2020-08-24] MEDS: FLUoxetine HCL 20 MG CAPSULE PO SCH (10:10)
[2020-08-24 12:59] LABS: HEMATOCRIT 33.5 % (35.4-49); HEMOGLOBIN 10.9 GM/dL (11.7-16.9); MCH 24.8 pg (25.7-33.7); MCHC 32.5 g/dl (32.0-35.9); MEAN CELL VOLUME 76.4 fl (80-96); MEAN PLT VOLUME 8.2 fl (7.5-11.1); PLATELET COUNT 282 K/MM3 (134-434); RBC 4.38 M/mm3 (4.00-5.60); RDW 19.9 % (11.9-15.9); WHITE BLOOD COUNT 7.1 K/mm3 (4.0-10.0)
[2020-08-24 13:05] LABS: POTASSIUM 3.9 mmol/L (3.5-5.1)
[2020-08-24 13:10] LABS: ALBUMIN 3.2 g/dl (3.4-5.0); BLOOD UREA NITROGEN 15.2 mg/dL (7-18); CALCIUM 8.7 mg/dL (8.5-10.1)
[2020-08-24 13:16] LABS: BILIRUBIN,TOTAL 0.6 mg/dL (0.2-1); TOT PROT 6.9 g/dl (6.4-8.2)
[2020-08-24 15:20] LABS: HIV INTERPRETATION NEGATIVE (NEGATIVE)
[2020-08-24] MEDS: APIXABAN 5 MG TABLET PO SCH (22:06)
[2020-08-24] MEDS: THIAMINE HCL 100 MG TABLET (FP) PO SCH (22:07)
[2020-08-24] MEDS: CLOPIDOGREL BISULFATE 75 MG TABLET (FP) PO SCH (22:07)
[2020-08-24] MEDS: ATORVASTATIN CA 80 MG TABLET (FP) PO SCH (22:07)
[2020-08-24] MEDS: MELATONIN 5 MG TABLETS PO SCH (22:07)
[2020-08-24] MEDS: CARVEDILOL 6.25 MG TABLET (FP) PO SCH (22:07)
[2020-08-25] MEDS: hydrOXYzine PAMOATE 25 MG CAPSULE (FP) PO SCH ×5 (05:14→22:17)
[2020-08-25] MEDS ORDERED: diazePAM 5 MG TABLET PO SCH (06:00)
[2020-08-25 09:59] LABS: INR 1.07 (0.83-1.09); PROTHROMBIN TIME (PATIENT) 12.9 SEC (9.7-13.0)
[2020-08-25] MEDS ORDERED: GABAPENTIN 400 MG CAPSULE PO SCH (10:00)
[2020-08-25] MEDS: CARVEDILOL 6.25 MG TABLET (FP) PO SCH ×2 (10:11→22:18)
[2020-08-25] MEDS: LISINOPRIL 5 MG TABLET PO SCH (10:11)
[2020-08-25] MEDS: APIXABAN 5 MG TABLET PO SCH ×2 (10:11→22:17)
[2020-08-25] MEDS: FLUoxetine HCL 20 MG CAPSULE PO SCH (10:11)
[2020-08-25] MEDS: PRENATAL VITAMINS W/ FOLIC ACID TABLET (FP) PO SCH (11:07)
[2020-08-25] MEDS: diazePAM 5 MG TABLET PO SCH ×3 (14:47→22:18)
[2020-08-25] MEDS: ATORVASTATIN CA 80 MG TABLET (FP) PO SCH (22:17)
[2020-08-25] MEDS: THIAMINE HCL 100 MG TABLET (FP) PO SCH (22:17)
[2020-08-25] MEDS: CLOPIDOGREL BISULFATE 75 MG TABLET (FP) PO SCH (22:18)
[2020-08-25] MEDS: MELATONIN 5 MG TABLETS PO SCH (22:40)
[2020-08-26] MEDS: hydrOXYzine PAMOATE 25 MG CAPSULE (FP) PO SCH ×5 (05:47→22:43)
[2020-08-26] MEDS ORDERED: diazePAM 5 MG TABLET PO SCH (06:00)
[2020-08-26] MEDS: APIXABAN 5 MG TABLET PO SCH ×2 (10:53→22:43)
[2020-08-26] MEDS: CARVEDILOL 6.25 MG TABLET (FP) PO SCH ×2 (10:53→22:43)
[2020-08-26] MEDS: LISINOPRIL 5 MG TABLET PO SCH (10:53)
[2020-08-26] MEDS: FLUoxetine HCL 20 MG CAPSULE PO SCH (10:53)
[2020-08-26] MEDS: PRENATAL VITAMINS W/ FOLIC ACID TABLET (FP) PO SCH (10:53)
[2020-08-26] MEDS: diazePAM 5 MG TABLET PO SCH ×3 (10:53→18:23)
[2020-08-26] MEDS: TORSEMIDE 20 MG TABLET (FP) PO SCH (14:11)
[2020-08-26] MEDS: ACETAMINOPHEN 325 MG TABLET (FP) PO PRN (19:49)
[2020-08-26] MEDS: CLOPIDOGREL BISULFATE 75 MG TABLET (FP) PO SCH (22:43)
[2020-08-26] MEDS: MELATONIN 5 MG TABLETS PO SCH (22:43)
[2020-08-26] MEDS: THIAMINE HCL 100 MG TABLET (FP) PO SCH (22:43)
[2020-08-26] MEDS: ATORVASTATIN CA 80 MG TABLET (FP) PO SCH (22:43)
[2020-08-27] MEDS ORDERED: diazePAM 5 MG TABLET PO ONE (06:00)
[2020-08-27] MEDS: hydrOXYzine PAMOATE 25 MG CAPSULE (FP) PO SCH ×5 (06:12→22:11)
[2020-08-27] MEDS: diazePAM 5 MG TABLET PO PRN ×2 (07:21→12:02)
[2020-08-27] MEDS: CARVEDILOL 6.25 MG TABLET (FP) PO SCH ×2 (10:20→22:11)
[2020-08-27] MEDS: LISINOPRIL 5 MG TABLET PO SCH (10:20)
[2020-08-27] MEDS: PRENATAL VITAMINS W/ FOLIC ACID TABLET (FP) PO SCH (10:20)
[2020-08-27] MEDS: TORSEMIDE 20 MG TABLET (FP) PO SCH (10:20)
[2020-08-27] MEDS: APIXABAN 5 MG TABLET PO SCH ×2 (10:21→23:16)
[2020-08-27] MEDS: FLUoxetine HCL 20 MG CAPSULE PO SCH (10:21)
[2020-08-27] MEDS ORDERED: SACUBITRIL/VALSARTAN 24 MG-26 MG TABLET PO SCH ×2 (13:00)
[2020-08-27] MEDS: SACUBITRIL/VALSARTAN 24 MG-26 MG TABLET PO SCH ×2 (15:51→22:11)
[2020-08-27] MEDS: ACETAMINOPHEN 325 MG TABLET (FP) PO PRN (16:33)
[2020-08-27] MEDS: CLOPIDOGREL BISULFATE 75 MG TABLET (FP) PO SCH (22:11)
[2020-08-27] MEDS: ATORVASTATIN CA 80 MG TABLET (FP) PO SCH (22:11)
[2020-08-27] MEDS: THIAMINE HCL 100 MG TABLET (FP) PO SCH (22:11)
[2020-08-27] MEDS: MELATONIN 5 MG TABLETS PO SCH (22:12)
[2020-08-28] MEDS: diazePAM 5 MG TABLET PO SCH ×5 (05:54→23:16)
[2020-08-28] MEDS: hydrOXYzine PAMOATE 25 MG CAPSULE (FP) PO SCH ×5 (05:54→21:41)
[2020-08-28] MEDS: ACETAMINOPHEN 325 MG TABLET (FP) PO PRN ×2 (06:36→21:42)
[2020-08-28] MEDS: TORSEMIDE 20 MG TABLET (FP) PO SCH (10:04)
[2020-08-28] MEDS: FLUoxetine HCL 20 MG CAPSULE PO SCH (10:04)
[2020-08-28] MEDS: PRENATAL VITAMINS W/ FOLIC ACID TABLET (FP) PO SCH (10:04)
[2020-08-28] MEDS: LISINOPRIL 5 MG TABLET PO SCH (10:05)
[2020-08-28] MEDS: SACUBITRIL/VALSARTAN 24 MG-26 MG TABLET PO SCH ×2 (10:05→21:38)
[2020-08-28] MEDS: APIXABAN 5 MG TABLET PO SCH ×2 (12:04→21:38)
[2020-08-28] MEDS: CARVEDILOL 6.25 MG TABLET (FP) PO SCH ×2 (12:04→21:38)
[2020-08-28] MEDS: INSULIN SLIDING SCALE (NOVOLOG) 1 VIAL SQ SCH ×2 (19:20→21:32)
[2020-08-28] MEDS ORDERED: INSULIN (NOVOLOG) ASPART 100 UNITS/ML 10ML VIAL ONE (21:36)
[2020-08-28] MEDS: THIAMINE HCL 100 MG TABLET (FP) PO SCH (21:38)
[2020-08-28] MEDS: ATORVASTATIN CA 80 MG TABLET (FP) PO SCH (21:38)
[2020-08-28] MEDS: CLOPIDOGREL BISULFATE 75 MG TABLET (FP) PO SCH (21:38)
[2020-08-28] MEDS: MELATONIN 5 MG TABLETS PO SCH (21:40)
[2020-08-29] MEDS ORDERED: diazePAM 5 MG TABLET PO ONE (05:00)
[2020-08-29] MEDS: hydrOXYzine PAMOATE 25 MG CAPSULE (FP) PO SCH ×3 (05:58→14:27)
[2020-08-29] MEDS: INSULIN SLIDING SCALE (NOVOLOG) 1 VIAL SQ SCH ×2 (06:03→11:19)
[2020-08-29 09:32] VITALS: TEMP 97.1
[2020-08-29] MEDS ORDERED: diazePAM 5 MG TABLET PO SCH (10:00)
[2020-08-29] MEDS: TORSEMIDE 20 MG TABLET (FP) PO SCH (10:16)
[2020-08-29] MEDS: LISINOPRIL 5 MG TABLET PO SCH (10:16)
[2020-08-29] MEDS: CARVEDILOL 6.25 MG TABLET (FP) PO SCH (10:17)
[2020-08-29] MEDS: APIXABAN 5 MG TABLET PO SCH (10:17)
[2020-08-29] MEDS: FLUoxetine HCL 20 MG CAPSULE PO SCH (10:17)
[2020-08-29] MEDS: SACUBITRIL/VALSARTAN 24 MG-26 MG TABLET PO SCH (10:17)
[2020-08-29] MEDS: PRENATAL VITAMINS W/ FOLIC ACID TABLET (FP) PO SCH (10:17)
[2020-08-29] MEDS: ACETAMINOPHEN 325 MG TABLET (FP) PO PRN (12:05)
[2020-08-29 17:29] VITALS: BP 121/80; PULSE 80
== END 2020-08-29 17:08 | disposition other institution (70) | DRG 897 ==
LOC: YASAS 16:08 → Y6N 19:54
PROVIDERS: ADMIT Allergy & Immunology; ATTEND Allergy & Immunology
PROC: HZ2ZZZZ Detoxification Services for Substance Abuse Treatment (ICD-10-PCS; principal; 2020-08-23)
DX: F10.230 Alcohol dependence with withdrawal, uncomplicated (principal); F14.20 Cocaine dependence, uncomplicated; F19.282 Other psychoactive substance dependence with psychoactive substance-induced sleep disorder; F19.24 Other psychoactive substance dependence with psychoactive substance-induced mood disorder; F41.9 Anxiety disorder, unspecified; F32.9 Major depressive disorder, single episode, unspecified; D64.9 Anemia, unspecified; E78.5 Hyperlipidemia, unspecified; E11.9 Type 2 diabetes mellitus without complications; Z79.4 Long term (current) use of insulin; I25.10 Atherosclerotic heart disease of native coronary artery without angina pectoris; I10 Essential (primary) hypertension; Z95.1 Presence of aortocoronary bypass graft; I48.91 Unspecified atrial fibrillation; Z79.01 Long term (current) use of anticoagulants; K70.30 Alcoholic cirrhosis of liver without ascites; R74.01 Elevation of levels of liver transaminase levels; R76.11 Nonspecific reaction to tuberculin skin test without active tuberculosis; Z86.19 Personal history of other infectious and parasitic diseases; Z95.0 Presence of cardiac pacemaker; Z87.891 Personal history of nicotine dependence; Z91.013 Allergy to seafood
CPT/HCPCS: 36415; 80053; 82947; 82962; 85027; 85610; 86780; 87389; C9803; U0003

== ENCOUNTER 2020-08-29 12:20 | Inpatient (IN) | payer OTHER ==
[2020-08-29] MEDS ORDERED: LOPERAMIDE HCL 2 MG CAPSULE PO PRN (16:55)
[2020-08-29] MEDS ORDERED: P-EPHED 60MG/TRIPROLIDI 2.5MG TABLET PO PRN (16:55)
[2020-08-29] MEDS ORDERED: IBUPROFEN 400 MG TABLET (FP) PO PRN (16:55)
[2020-08-29] MEDS ORDERED: NICOTINE POLACRILEX 2 MG GUM BUC PRN (16:55)
[2020-08-29] MEDS ORDERED: MAGNESIUM CITRATE 300 ML BOTTLE PO PRN (16:55)
[2020-08-29] MEDS ORDERED: MENTHOL/PHENOL 1 EACH UD MM PRN (16:55)
[2020-08-29] MEDS ORDERED: MAG HYDROX/AL HYDROX/SIMETH 30 ML UNIT-DOSE CUP PO PRN (16:55)
[2020-08-29] MEDS ORDERED: MAGNESIUM HYDROX 2400MG/30ML ORAL SUSPENSION 30 ML CUP PO PRN (16:55)
[2020-08-29] MEDS ORDERED: APIXABAN 5 MG TABLET PO SCH (20:15)
[2020-08-29] MEDS ORDERED: ATORVASTATIN CA 40 MG TABLET (FP) ONE (20:53)
[2020-08-29] MEDS: CARVEDILOL 6.25 MG TABLET (FP) PO SCH (21:25)
[2020-08-29] MEDS: APIXABAN 5 MG TABLET PO SCH (21:25)
[2020-08-29] MEDS: THIAMINE HCL 100 MG TABLET (FP) PO SCH (21:26)
[2020-08-29] MEDS: ATORVASTATIN CA 80 MG TABLET (FP) PO SCH (21:26)
[2020-08-29] MEDS: MELATONIN 5 MG TABLETS PO SCH (21:26)
[2020-08-29] MEDS: SACUBITRIL/VALSARTAN 24 MG-26 MG TABLET PO SCH (21:26)
[2020-08-29] MEDS: INSULIN SLIDING SCALE (NOVOLOG) 1 VIAL SQ SCH (21:30)
[2020-08-29] MEDS: hydrOXYzine PAMOATE 25 MG CAPSULE (FP) PO PRN (21:31)
[2020-08-29] MEDS: CLOPIDOGREL BISULFATE 75 MG TABLET (FP) PO SCH (22:32)
[2020-08-30] MEDS: INSULIN SLIDING SCALE (NOVOLOG) 1 VIAL SQ SCH ×4 (06:32→21:16)
[2020-08-30] MEDS ORDERED: PT OWN MED DRAWER 7, Y5N ONE ×3 (08:58→21:14)
[2020-08-30] MEDS ORDERED: PATIENT'S OWN MEDICATION (NON-FORMULARY) (Multivitamin [One-Daily Multi-Vitamin] 1 EACH Ta PO SCH (10:00)
[2020-08-30] MEDS ORDERED: PATIENT'S OWN MEDICATION (NON-FORMULARY) (Thiamine Mononitrate [Vitamin B-1] 100 MG Tablet PO SCH (10:00)
[2020-08-30] MEDS ORDERED: PATIENT'S OWN MEDICATION (NON-FORMULARY) (Lisinopril [Zestril] 2.5 MG Tablet) PO SCH (10:00)
[2020-08-30] MEDS ORDERED: MULTIVITAMINS (DAILY MVI) TABLET (FP) PO SCH (10:00)
[2020-08-30] MEDS: APIXABAN 5 MG TABLET PO SCH ×2 (10:12→21:12)
[2020-08-30] MEDS: CARVEDILOL 6.25 MG TABLET (FP) PO SCH ×2 (10:12→21:13)
[2020-08-30] MEDS: THIAMINE HCL 100 MG TABLET (FP) PO SCH ×2 (10:12→21:12)
[2020-08-30] MEDS: LISINOPRIL 5 MG TABLET PO SCH (10:12)
[2020-08-30] MEDS: FLUoxetine HCL 20 MG CAPSULE PO SCH (10:13)
[2020-08-30] MEDS: PRENATAL VITAMINS W/ FOLIC ACID TABLET (FP) PO SCH (10:13)
[2020-08-30] MEDS: TORSEMIDE 20 MG TABLET (FP) PO SCH (10:13)
[2020-08-30] MEDS: SACUBITRIL/VALSARTAN 24 MG-26 MG TABLET PO SCH ×2 (10:14→21:14)
[2020-08-30] MEDS: NICOTINE 7 MG/24 HOURS TOPICAL PATCH TD SCH (10:15)
[2020-08-30] MEDS: hydrOXYzine PAMOATE 25 MG CAPSULE (FP) PO PRN ×2 (10:16→21:13)
[2020-08-30] MEDS ORDERED: INSULIN (NOVOLOG) ASPART 100 UNITS/ML 10ML VIAL ONE (16:50)
[2020-08-30] MEDS ORDERED: ATORVASTATIN CA 40 MG TABLET (FP) ONE (18:45)
[2020-08-30] MEDS: MELATONIN 5 MG TABLETS PO SCH (21:12)
[2020-08-30] MEDS: ATORVASTATIN CA 80 MG TABLET (FP) PO SCH (21:15)
[2020-08-30] MEDS: CLOPIDOGREL BISULFATE 75 MG TABLET (FP) PO SCH (22:30)
[2020-08-31] MEDS: INSULIN SLIDING SCALE (NOVOLOG) 1 VIAL SQ SCH ×4 (06:13→21:01)
[2020-08-31] MEDS ORDERED: PT OWN MED DRAWER 7, Y5N ONE ×2 (08:48→21:05)
[2020-08-31] MEDS: FLUoxetine HCL 20 MG CAPSULE PO SCH (10:15)
[2020-08-31] MEDS: APIXABAN 5 MG TABLET PO SCH ×2 (10:15→21:03)
[2020-08-31] MEDS: CARVEDILOL 6.25 MG TABLET (FP) PO SCH ×2 (10:15→21:03)
[2020-08-31] MEDS: LISINOPRIL 5 MG TABLET PO SCH (10:15)
[2020-08-31] MEDS: TORSEMIDE 20 MG TABLET (FP) PO SCH (10:15)
[2020-08-31] MEDS: THIAMINE HCL 100 MG TABLET (FP) PO SCH ×2 (10:16→21:03)
[2020-08-31] MEDS: NICOTINE 7 MG/24 HOURS TOPICAL PATCH TD SCH (10:16)
[2020-08-31] MEDS: PRENATAL VITAMINS W/ FOLIC ACID TABLET (FP) PO SCH (10:16)
[2020-08-31] MEDS: SACUBITRIL/VALSARTAN 24 MG-26 MG TABLET PO SCH ×2 (10:17→21:03)
[2020-08-31] MEDS: hydrOXYzine PAMOATE 25 MG CAPSULE (FP) PO PRN ×2 (10:18→21:05)
[2020-08-31] MEDS: ACETAMINOPHEN 325 MG TABLET (FP) PO PRN (11:40)
[2020-08-31] MEDS ORDERED: INSULIN (NOVOLOG) ASPART 100 UNITS/ML 10ML VIAL ONE ×2 (16:53→21:46)
[2020-08-31] MEDS ORDERED: ATORVASTATIN CA 40 MG TABLET (FP) ONE (19:05)
[2020-08-31] MEDS: MELATONIN 5 MG TABLETS PO SCH (21:03)
[2020-08-31] MEDS: ATORVASTATIN CA 80 MG TABLET (FP) PO SCH (21:04)
[2020-08-31] MEDS: CLOPIDOGREL BISULFATE 75 MG TABLET (FP) PO SCH (21:05)
[2020-09-01] MEDS: INSULIN SLIDING SCALE (NOVOLOG) 1 VIAL SQ SCH ×4 (06:54→21:26)
[2020-09-01] MEDS ORDERED: PT OWN MED DRAWER 7, Y5N ONE ×2 (08:49→21:24)
[2020-09-01] MEDS: FLUoxetine HCL 20 MG CAPSULE PO SCH (10:22)
[2020-09-01] MEDS: APIXABAN 5 MG TABLET PO SCH ×2 (10:22→21:22)
[2020-09-01] MEDS: LISINOPRIL 5 MG TABLET PO SCH (10:22)
[2020-09-01] MEDS: TORSEMIDE 20 MG TABLET (FP) PO SCH (10:23)
[2020-09-01] MEDS: CARVEDILOL 6.25 MG TABLET (FP) PO SCH ×2 (10:23→21:22)
[2020-09-01] MEDS: PRENATAL VITAMINS W/ FOLIC ACID TABLET (FP) PO SCH (10:23)
[2020-09-01] MEDS: SACUBITRIL/VALSARTAN 24 MG-26 MG TABLET PO SCH ×2 (10:23→21:22)
[2020-09-01] MEDS: NICOTINE 7 MG/24 HOURS TOPICAL PATCH TD SCH (10:24)
[2020-09-01] MEDS: THIAMINE HCL 100 MG TABLET (FP) PO SCH ×2 (10:24→21:22)
[2020-09-01] MEDS: hydrOXYzine PAMOATE 25 MG CAPSULE (FP) PO PRN ×2 (10:26→21:24)
[2020-09-01] MEDS ORDERED: INSULIN (NOVOLOG) ASPART 100 UNITS/ML 10ML VIAL ONE (16:21)
[2020-09-01] MEDS ORDERED: ATORVASTATIN CA 40 MG TABLET (FP) ONE (18:38)
[2020-09-01] MEDS: MELATONIN 5 MG TABLETS PO SCH (21:22)
[2020-09-01] MEDS: ATORVASTATIN CA 80 MG TABLET (FP) PO SCH (21:22)
[2020-09-01] MEDS: CLOPIDOGREL BISULFATE 75 MG TABLET (FP) PO SCH (21:33)
[2020-09-01] MEDS: ACETAMINOPHEN 325 MG TABLET (FP) PO PRN (22:12)
[2020-09-02] MEDS: INSULIN SLIDING SCALE (NOVOLOG) 1 VIAL SQ SCH ×4 (06:09→21:44)
[2020-09-02] MEDS: CARVEDILOL 6.25 MG TABLET (FP) PO SCH ×2 (10:10→21:43)
[2020-09-02] MEDS: FLUoxetine HCL 20 MG CAPSULE PO SCH (10:10)
[2020-09-02] MEDS: LISINOPRIL 5 MG TABLET PO SCH (10:10)
[2020-09-02] MEDS: TORSEMIDE 20 MG TABLET (FP) PO SCH (10:11)
[2020-09-02] MEDS: SACUBITRIL/VALSARTAN 24 MG-26 MG TABLET PO SCH ×2 (10:11→21:43)
[2020-09-02] MEDS: APIXABAN 5 MG TABLET PO SCH ×2 (10:11→22:34)
[2020-09-02] MEDS: PRENATAL VITAMINS W/ FOLIC ACID TABLET (FP) PO SCH (10:11)
[2020-09-02] MEDS: hydrOXYzine PAMOATE 25 MG CAPSULE (FP) PO PRN ×2 (10:13→21:46)
[2020-09-02] MEDS: THIAMINE HCL 100 MG TABLET (FP) PO SCH ×2 (10:14→21:43)
[2020-09-02] MEDS: NICOTINE 7 MG/24 HOURS TOPICAL PATCH TD SCH (10:14)
[2020-09-02] MEDS ORDERED: INSULIN (NOVOLOG) ASPART 100 UNITS/ML 10ML VIAL ONE ×3 (11:58→21:42)
[2020-09-02] MEDS ORDERED: ATORVASTATIN CA 40 MG TABLET (FP) ONE (19:55)
[2020-09-02] MEDS: ATORVASTATIN CA 80 MG TABLET (FP) PO SCH (21:43)
[2020-09-02] MEDS: MELATONIN 5 MG TABLETS PO SCH (21:44)
[2020-09-02] MEDS: CLOPIDOGREL BISULFATE 75 MG TABLET (FP) PO SCH (22:33)
[2020-09-03] MEDS: INSULIN SLIDING SCALE (NOVOLOG) 1 VIAL SQ SCH ×4 (06:43→21:46)
[2020-09-03] MEDS ORDERED: PT OWN MED DRAWER 7, Y5N ONE (08:26)
[2020-09-03] MEDS: TORSEMIDE 20 MG TABLET (FP) PO SCH (09:54)
[2020-09-03] MEDS: hydrOXYzine PAMOATE 25 MG CAPSULE (FP) PO PRN ×2 (09:54→21:44)
[2020-09-03] MEDS: LISINOPRIL 5 MG TABLET PO SCH (09:54)
[2020-09-03] MEDS: PRENATAL VITAMINS W/ FOLIC ACID TABLET (FP) PO SCH (09:54)
[2020-09-03] MEDS: APIXABAN 5 MG TABLET PO SCH ×2 (09:54→21:40)
[2020-09-03] MEDS: FLUoxetine HCL 20 MG CAPSULE PO SCH (09:54)
[2020-09-03] MEDS: CARVEDILOL 6.25 MG TABLET (FP) PO SCH ×2 (09:54→21:40)
[2020-09-03] MEDS: NICOTINE 7 MG/24 HOURS TOPICAL PATCH TD SCH (09:55)
[2020-09-03] MEDS: SACUBITRIL/VALSARTAN 24 MG-26 MG TABLET PO SCH ×2 (09:55→21:41)
[2020-09-03] MEDS: THIAMINE HCL 100 MG TABLET (FP) PO SCH ×2 (09:56→21:42)
[2020-09-03] MEDS ORDERED: ATORVASTATIN CA 40 MG TABLET (FP) ONE (19:56)
[2020-09-03] MEDS: ATORVASTATIN CA 80 MG TABLET (FP) PO SCH (21:41)
[2020-09-03] MEDS: MELATONIN 5 MG TABLETS PO SCH (21:41)
[2020-09-03] MEDS: CLOPIDOGREL BISULFATE 75 MG TABLET (FP) PO SCH (21:44)
[2020-09-04] MEDS: INSULIN SLIDING SCALE (NOVOLOG) 1 VIAL SQ SCH ×4 (06:40→21:26)
[2020-09-04] MEDS ORDERED: PT OWN MED DRAWER 7, Y5N ONE (09:19)
[2020-09-04] MEDS: THIAMINE HCL 100 MG TABLET (FP) PO SCH ×2 (10:16→21:21)
[2020-09-04] MEDS: APIXABAN 5 MG TABLET PO SCH ×2 (10:16→21:22)
[2020-09-04] MEDS: PRENATAL VITAMINS W/ FOLIC ACID TABLET (FP) PO SCH (10:16)
[2020-09-04] MEDS: FLUoxetine HCL 20 MG CAPSULE PO SCH (10:16)
[2020-09-04] MEDS: NICOTINE 7 MG/24 HOURS TOPICAL PATCH TD SCH (10:17)
[2020-09-04] MEDS: hydrOXYzine PAMOATE 25 MG CAPSULE (FP) PO PRN ×2 (10:18→21:24)
[2020-09-04] MEDS: SACUBITRIL/VALSARTAN 24 MG-26 MG TABLET PO SCH ×2 (10:19→21:23)
[2020-09-04] MEDS: CARVEDILOL 6.25 MG TABLET (FP) PO SCH ×2 (10:19→21:22)
[2020-09-04] MEDS: TORSEMIDE 20 MG TABLET (FP) PO SCH (10:19)
[2020-09-04] MEDS: LISINOPRIL 5 MG TABLET PO SCH (10:20)
[2020-09-04] MEDS ORDERED: INSULIN (NOVOLOG) ASPART 100 UNITS/ML 10ML VIAL ONE (16:57)
[2020-09-04] MEDS ORDERED: ATORVASTATIN CA 40 MG TABLET (FP) ONE (18:58)
[2020-09-04] MEDS: MELATONIN 5 MG TABLETS PO SCH (21:21)
[2020-09-04] MEDS: ACETAMINOPHEN 325 MG TABLET (FP) PO PRN (21:21)
[2020-09-04] MEDS: ATORVASTATIN CA 80 MG TABLET (FP) PO SCH (21:23)
[2020-09-04] MEDS: CLOPIDOGREL BISULFATE 75 MG TABLET (FP) PO SCH (21:23)
[2020-09-05] MEDS: INSULIN SLIDING SCALE (NOVOLOG) 1 VIAL SQ SCH ×4 (06:55→21:34)
[2020-09-05] MEDS ORDERED: PT OWN MED DRAWER 7, Y5N ONE ×2 (09:02→22:08)
[2020-09-05] MEDS: PRENATAL VITAMINS W/ FOLIC ACID TABLET (FP) PO SCH (10:01)
[2020-09-05] MEDS: TORSEMIDE 20 MG TABLET (FP) PO SCH (10:01)
[2020-09-05] MEDS: THIAMINE HCL 100 MG TABLET (FP) PO SCH ×2 (10:02→21:30)
[2020-09-05] MEDS: NICOTINE 7 MG/24 HOURS TOPICAL PATCH TD SCH (10:02)
[2020-09-05] MEDS: SACUBITRIL/VALSARTAN 24 MG-26 MG TABLET PO SCH ×2 (10:02→21:31)
[2020-09-05] MEDS: FLUoxetine HCL 20 MG CAPSULE PO SCH (10:02)
[2020-09-05] MEDS: APIXABAN 5 MG TABLET PO SCH ×2 (10:02→21:30)
[2020-09-05] MEDS: CARVEDILOL 6.25 MG TABLET (FP) PO SCH ×2 (10:02→21:30)
[2020-09-05] MEDS: hydrOXYzine PAMOATE 25 MG CAPSULE (FP) PO PRN ×2 (10:04→21:30)
[2020-09-05] MEDS ORDERED: INSULIN (NOVOLOG) ASPART 100 UNITS/ML 10ML VIAL ONE (16:31)
[2020-09-05] MEDS: ACETAMINOPHEN 325 MG TABLET (FP) PO PRN (16:47)
[2020-09-05] MEDS ORDERED: ATORVASTATIN CA 40 MG TABLET (FP) ONE (18:56)
[2020-09-05] MEDS: MELATONIN 5 MG TABLETS PO SCH (21:30)
[2020-09-05] MEDS: ATORVASTATIN CA 80 MG TABLET (FP) PO SCH (21:31)
[2020-09-05] MEDS: CLOPIDOGREL BISULFATE 75 MG TABLET (FP) PO SCH (21:32)
[2020-09-05] MEDS: guaiFENesin 200 MG/10 ML 10 ML UNIT-DOSE CUPS PO PRN (21:32)
[2020-09-06] MEDS: guaiFENesin 200 MG/10 ML 10 ML UNIT-DOSE CUPS PO PRN ×3 (06:27→21:35)
[2020-09-06] MEDS: INSULIN SLIDING SCALE (NOVOLOG) 1 VIAL SQ SCH ×4 (06:27→21:35)
[2020-09-06] MEDS ORDERED: PT OWN MED DRAWER 7, Y5N ONE (09:21)
[2020-09-06] MEDS: PRENATAL VITAMINS W/ FOLIC ACID TABLET (FP) PO SCH (10:14)
[2020-09-06] MEDS: TORSEMIDE 20 MG TABLET (FP) PO SCH (10:14)
[2020-09-06] MEDS: SACUBITRIL/VALSARTAN 24 MG-26 MG TABLET PO SCH ×2 (10:14→21:32)
[2020-09-06] MEDS: FLUoxetine HCL 20 MG CAPSULE PO SCH (10:15)
[2020-09-06] MEDS: CARVEDILOL 6.25 MG TABLET (FP) PO SCH ×2 (10:15→21:32)
[2020-09-06] MEDS: NICOTINE 7 MG/24 HOURS TOPICAL PATCH TD SCH (10:15)
[2020-09-06] MEDS: APIXABAN 5 MG TABLET PO SCH ×2 (10:15→21:32)
[2020-09-06] MEDS: hydrOXYzine PAMOATE 25 MG CAPSULE (FP) PO PRN ×2 (10:16→21:32)
[2020-09-06] MEDS: THIAMINE HCL 100 MG TABLET (FP) PO SCH ×2 (11:07→21:31)
[2020-09-06] MEDS ORDERED: ATORVASTATIN CA 40 MG TABLET (FP) ONE (18:56)
[2020-09-06] MEDS: ATORVASTATIN CA 80 MG TABLET (FP) PO SCH (21:30)
[2020-09-06] MEDS: MELATONIN 5 MG TABLETS PO SCH (21:31)
[2020-09-06] MEDS: CLOPIDOGREL BISULFATE 75 MG TABLET (FP) PO SCH (21:33)
[2020-09-07] MEDS: INSULIN SLIDING SCALE (NOVOLOG) 1 VIAL SQ SCH ×4 (06:49→21:29)
[2020-09-07] MEDS ORDERED: PT OWN MED DRAWER 7, Y5N ONE (08:43)
[2020-09-07] MEDS: SACUBITRIL/VALSARTAN 24 MG-26 MG TABLET PO SCH ×2 (10:07→21:32)
[2020-09-07] MEDS: APIXABAN 5 MG TABLET PO SCH ×2 (10:07→21:27)
[2020-09-07] MEDS: FLUoxetine HCL 20 MG CAPSULE PO SCH (10:07)
[2020-09-07] MEDS: PRENATAL VITAMINS W/ FOLIC ACID TABLET (FP) PO SCH (10:07)
[2020-09-07] MEDS: TORSEMIDE 20 MG TABLET (FP) PO SCH (10:07)
[2020-09-07] MEDS: CARVEDILOL 6.25 MG TABLET (FP) PO SCH ×2 (10:07→21:27)
[2020-09-07] MEDS: NICOTINE 7 MG/24 HOURS TOPICAL PATCH TD SCH (10:09)
[2020-09-07] MEDS: hydrOXYzine PAMOATE 25 MG CAPSULE (FP) PO PRN ×2 (10:09→21:27)
[2020-09-07] MEDS: THIAMINE HCL 100 MG TABLET (FP) PO SCH ×2 (10:09→21:27)
[2020-09-07] MEDS: ACETAMINOPHEN 325 MG TABLET (FP) PO PRN (15:55)
[2020-09-07] MEDS ORDERED: INSULIN (NOVOLOG) ASPART 100 UNITS/ML 10ML VIAL ONE ×2 (16:40→21:42)
[2020-09-07] MEDS ORDERED: ATORVASTATIN CA 40 MG TABLET (FP) ONE (19:11)
[2020-09-07] MEDS: MELATONIN 5 MG TABLETS PO SCH (21:27)
[2020-09-07] MEDS: CLOPIDOGREL BISULFATE 75 MG TABLET (FP) PO SCH (21:28)
[2020-09-07] MEDS: ATORVASTATIN CA 80 MG TABLET (FP) PO SCH (21:31)
[2020-09-08] MEDS: INSULIN SLIDING SCALE (NOVOLOG) 1 VIAL SQ SCH ×4 (06:59→21:30)
[2020-09-08] MEDS ORDERED: PT OWN MED DRAWER 7, Y5N ONE ×3 (09:02→19:27)
[2020-09-08] MEDS: NICOTINE 7 MG/24 HOURS TOPICAL PATCH TD SCH (10:02)
[2020-09-08] MEDS: FLUoxetine HCL 20 MG CAPSULE PO SCH (10:02)
[2020-09-08] MEDS: APIXABAN 5 MG TABLET PO SCH ×2 (10:02→21:31)
[2020-09-08] MEDS: PRENATAL VITAMINS W/ FOLIC ACID TABLET (FP) PO SCH (10:03)
[2020-09-08] MEDS: hydrOXYzine PAMOATE 25 MG CAPSULE (FP) PO PRN ×2 (10:04→21:32)
[2020-09-08] MEDS: ACETAMINOPHEN 325 MG TABLET (FP) PO PRN (10:05)
[2020-09-08] MEDS: THIAMINE HCL 100 MG TABLET (FP) PO SCH ×2 (10:05→21:31)
[2020-09-08] MEDS: SACUBITRIL/VALSARTAN 24 MG-26 MG TABLET PO SCH ×2 (10:49→21:32)
[2020-09-08] MEDS: CARVEDILOL 6.25 MG TABLET (FP) PO SCH ×2 (10:49→21:32)
[2020-09-08] MEDS: TORSEMIDE 20 MG TABLET (FP) PO SCH (10:49)
[2020-09-08] MEDS ORDERED: ATORVASTATIN CA 40 MG TABLET (FP) ONE (19:25)
[2020-09-08] MEDS: ATORVASTATIN CA 80 MG TABLET (FP) PO SCH (21:31)
[2020-09-08] MEDS: CLOPIDOGREL BISULFATE 75 MG TABLET (FP) PO SCH (21:31)
[2020-09-08] MEDS: MELATONIN 5 MG TABLETS PO SCH (21:32)
[2020-09-09] MEDS ORDERED: PT OWN MED DRAWER 7, Y5N ONE (00:17)
[2020-09-09] MEDS: INSULIN SLIDING SCALE (NOVOLOG) 1 VIAL SQ SCH ×4 (06:39→21:18)
[2020-09-09] MEDS: CARVEDILOL 6.25 MG TABLET (FP) PO SCH ×2 (09:43→21:15)
[2020-09-09] MEDS: FLUoxetine HCL 20 MG CAPSULE PO SCH (09:43)
[2020-09-09] MEDS: APIXABAN 5 MG TABLET PO SCH ×2 (09:43→21:15)
[2020-09-09] MEDS: NICOTINE 7 MG/24 HOURS TOPICAL PATCH TD SCH (09:43)
[2020-09-09] MEDS: PRENATAL VITAMINS W/ FOLIC ACID TABLET (FP) PO SCH (09:43)
[2020-09-09] MEDS: TORSEMIDE 20 MG TABLET (FP) PO SCH (09:44)
[2020-09-09] MEDS: THIAMINE HCL 100 MG TABLET (FP) PO SCH ×2 (09:44→21:15)
[2020-09-09] MEDS: SACUBITRIL/VALSARTAN 24 MG-26 MG TABLET PO SCH ×2 (09:44→21:17)
[2020-09-09] MEDS: hydrOXYzine PAMOATE 25 MG CAPSULE (FP) PO PRN ×2 (09:45→21:15)
[2020-09-09] MEDS ORDERED: INSULIN (NOVOLOG) ASPART 100 UNITS/ML 10ML VIAL ONE (16:32)
[2020-09-09] MEDS ORDERED: ATORVASTATIN CA 40 MG TABLET (FP) ONE (18:42)
[2020-09-09] MEDS: ACETAMINOPHEN 325 MG TABLET (FP) PO PRN (21:15)
[2020-09-09] MEDS: MELATONIN 5 MG TABLETS PO SCH (21:15)
[2020-09-09] MEDS: ATORVASTATIN CA 80 MG TABLET (FP) PO SCH (21:17)
[2020-09-09] MEDS: CLOPIDOGREL BISULFATE 75 MG TABLET (FP) PO SCH (21:19)
[2020-09-10] MEDS: INSULIN SLIDING SCALE (NOVOLOG) 1 VIAL SQ SCH ×4 (06:44→21:57)
[2020-09-10] MEDS: hydrOXYzine PAMOATE 25 MG CAPSULE (FP) PO PRN ×2 (09:51→21:53)
[2020-09-10] MEDS: PRENATAL VITAMINS W/ FOLIC ACID TABLET (FP) PO SCH (09:52)
[2020-09-10] MEDS: NICOTINE 7 MG/24 HOURS TOPICAL PATCH TD SCH (09:52)
[2020-09-10] MEDS: CARVEDILOL 6.25 MG TABLET (FP) PO SCH ×2 (09:52→21:49)
[2020-09-10] MEDS: SACUBITRIL/VALSARTAN 24 MG-26 MG TABLET PO SCH ×2 (09:52→21:50)
[2020-09-10] MEDS: APIXABAN 5 MG TABLET PO SCH ×2 (09:52→21:49)
[2020-09-10] MEDS: TORSEMIDE 20 MG TABLET (FP) PO SCH (09:54)
[2020-09-10] MEDS: THIAMINE HCL 100 MG TABLET (FP) PO SCH ×2 (09:54→21:54)
[2020-09-10] MEDS: FLUoxetine HCL 20 MG CAPSULE PO SCH (09:58)
[2020-09-10] MEDS ORDERED: ATORVASTATIN CA 20 MG TABLET (FP) ONE (19:33)
[2020-09-10] MEDS ORDERED: PT OWN MED DRAWER 7, Y5N ONE ×2 (19:37→22:16)
[2020-09-10] MEDS: ATORVASTATIN CA 80 MG TABLET (FP) PO SCH (21:50)
[2020-09-10] MEDS: MELATONIN 5 MG TABLETS PO SCH (21:50)
[2020-09-10] MEDS: CLOPIDOGREL BISULFATE 75 MG TABLET (FP) PO SCH (21:50)
[2020-09-10] MEDS: ACETAMINOPHEN 325 MG TABLET (FP) PO PRN (21:52)
[2020-09-10] MEDS ORDERED: ACETAMINOPHEN 325 MG TABLET (FP) ONE (22:17)
[2020-09-11] MEDS: INSULIN SLIDING SCALE (NOVOLOG) 1 VIAL SQ SCH ×3 (06:51→16:37)
[2020-09-11] MEDS: PRENATAL VITAMINS W/ FOLIC ACID TABLET (FP) PO SCH (09:49)
[2020-09-11] MEDS: THIAMINE HCL 100 MG TABLET (FP) PO SCH ×2 (09:49→21:09)
[2020-09-11] MEDS: FLUoxetine HCL 20 MG CAPSULE PO SCH (09:49)
[2020-09-11] MEDS: CARVEDILOL 6.25 MG TABLET (FP) PO SCH ×2 (09:49→21:10)
[2020-09-11] MEDS: TORSEMIDE 20 MG TABLET (FP) PO SCH (09:49)
[2020-09-11] MEDS: ACETAMINOPHEN 325 MG TABLET (FP) PO PRN (09:52)
[2020-09-11] MEDS: hydrOXYzine PAMOATE 25 MG CAPSULE (FP) PO PRN (09:53)
[2020-09-11] MEDS: NICOTINE 7 MG/24 HOURS TOPICAL PATCH TD SCH (09:54)
[2020-09-11] MEDS: SACUBITRIL/VALSARTAN 24 MG-26 MG TABLET PO SCH ×2 (09:54→21:13)
[2020-09-11] MEDS: APIXABAN 5 MG TABLET PO SCH ×2 (11:50→21:10)
[2020-09-11] MEDS ORDERED: INSULIN (NOVOLOG) ASPART 100 UNITS/ML 10ML VIAL ONE ×2 (16:34→23:12)
[2020-09-11] MEDS ORDERED: ATORVASTATIN CA 40 MG TABLET (FP) ONE (19:07)
[2020-09-11] MEDS: MELATONIN 5 MG TABLETS PO SCH (21:09)
[2020-09-11] MEDS: CLOPIDOGREL BISULFATE 75 MG TABLET (FP) PO SCH (21:11)
[2020-09-11] MEDS: ATORVASTATIN CA 80 MG TABLET (FP) PO SCH (21:12)
[2020-09-12] MEDS: INSULIN SLIDING SCALE (NOVOLOG) 1 VIAL SQ SCH ×2 (07:10→16:30)
[2020-09-12] MEDS ORDERED: PT OWN MED DRAWER 7, Y5N ONE (08:30)
[2020-09-12] MEDS: TORSEMIDE 20 MG TABLET (FP) PO SCH (09:41)
[2020-09-12] MEDS: APIXABAN 5 MG TABLET PO SCH ×2 (09:41→21:23)
[2020-09-12] MEDS: CARVEDILOL 6.25 MG TABLET (FP) PO SCH ×2 (09:41→21:23)
[2020-09-12] MEDS: FLUoxetine HCL 20 MG CAPSULE PO SCH (09:42)
[2020-09-12] MEDS: NICOTINE 7 MG/24 HOURS TOPICAL PATCH TD SCH (09:42)
[2020-09-12] MEDS: SACUBITRIL/VALSARTAN 24 MG-26 MG TABLET PO SCH ×2 (09:42→21:25)
[2020-09-12] MEDS: PRENATAL VITAMINS W/ FOLIC ACID TABLET (FP) PO SCH (09:42)
[2020-09-12] MEDS: hydrOXYzine PAMOATE 25 MG CAPSULE (FP) PO PRN ×2 (09:43→21:23)
[2020-09-12] MEDS: ACETAMINOPHEN 325 MG TABLET (FP) PO PRN ×2 (09:44→21:23)
[2020-09-12] MEDS: THIAMINE HCL 100 MG TABLET (FP) PO SCH ×2 (09:57→21:23)
[2020-09-12] MEDS ORDERED: INSULIN (NOVOLOG) ASPART 100 UNITS/ML 10ML VIAL ONE ×2 (16:24→21:34)
[2020-09-12] MEDS ORDERED: ATORVASTATIN CA 40 MG TABLET (FP) ONE (19:14)
[2020-09-12] MEDS: MELATONIN 5 MG TABLETS PO SCH (21:23)
[2020-09-12] MEDS: ATORVASTATIN CA 80 MG TABLET (FP) PO SCH (21:25)
[2020-09-12] MEDS: CLOPIDOGREL BISULFATE 75 MG TABLET (FP) PO SCH (21:25)
[2020-09-13] MEDS ORDERED: PT OWN MED DRAWER 7, Y5N ONE ×2 (03:19→03:20)
[2020-09-13] MEDS: INSULIN SLIDING SCALE (NOVOLOG) 1 VIAL SQ SCH ×2 (06:59→16:42)
[2020-09-13] MEDS ORDERED: MASKS NR ONE (08:27)
[2020-09-13] MEDS: PRENATAL VITAMINS W/ FOLIC ACID TABLET (FP) PO SCH (10:08)
[2020-09-13] MEDS: TORSEMIDE 20 MG TABLET (FP) PO SCH (10:09)
[2020-09-13] MEDS: APIXABAN 5 MG TABLET PO SCH ×2 (10:09→21:22)
[2020-09-13] MEDS: FLUoxetine HCL 20 MG CAPSULE PO SCH (10:09)
[2020-09-13] MEDS: ACETAMINOPHEN 325 MG TABLET (FP) PO PRN ×2 (10:10→21:24)
[2020-09-13] MEDS: NICOTINE 7 MG/24 HOURS TOPICAL PATCH TD SCH (10:10)
[2020-09-13] MEDS: CARVEDILOL 6.25 MG TABLET (FP) PO SCH ×2 (10:10→21:22)
[2020-09-13] MEDS: SACUBITRIL/VALSARTAN 24 MG-26 MG TABLET PO SCH ×2 (10:10→21:24)
[2020-09-13] MEDS: THIAMINE HCL 100 MG TABLET (FP) PO SCH ×2 (10:12→21:22)
[2020-09-13] MEDS: hydrOXYzine PAMOATE 25 MG CAPSULE (FP) PO PRN ×2 (10:12→21:22)
[2020-09-13] MEDS ORDERED: ATORVASTATIN CA 40 MG TABLET (FP) ONE (18:57)
[2020-09-13] MEDS: CLOPIDOGREL BISULFATE 75 MG TABLET (FP) PO SCH (21:22)
[2020-09-13] MEDS: MELATONIN 5 MG TABLETS PO SCH (21:22)
[2020-09-13] MEDS: ATORVASTATIN CA 80 MG TABLET (FP) PO SCH (21:23)
[2020-09-14] MEDS: INSULIN SLIDING SCALE (NOVOLOG) 1 VIAL SQ SCH ×2 (06:53→16:44)
[2020-09-14 06:58] VITALS: TEMP 97.3
[2020-09-14] MEDS: PRENATAL VITAMINS W/ FOLIC ACID TABLET (FP) PO SCH (09:42)
[2020-09-14] MEDS: CARVEDILOL 6.25 MG TABLET (FP) PO SCH ×2 (09:42→21:23)
[2020-09-14] MEDS: SACUBITRIL/VALSARTAN 24 MG-26 MG TABLET PO SCH ×2 (09:42→21:24)
[2020-09-14] MEDS: TORSEMIDE 20 MG TABLET (FP) PO SCH (09:43)
[2020-09-14] MEDS: NICOTINE 7 MG/24 HOURS TOPICAL PATCH TD SCH (09:43)
[2020-09-14] MEDS: APIXABAN 5 MG TABLET PO SCH ×2 (09:43→21:23)
[2020-09-14] MEDS: THIAMINE HCL 100 MG TABLET (FP) PO SCH ×2 (09:43→21:23)
[2020-09-14] MEDS: FLUoxetine HCL 20 MG CAPSULE PO SCH (09:43)
[2020-09-14] MEDS: hydrOXYzine PAMOATE 25 MG CAPSULE (FP) PO PRN ×2 (09:44→21:23)
[2020-09-14] MEDS: ACETAMINOPHEN 325 MG TABLET (FP) PO PRN (09:44)
[2020-09-14] MEDS ORDERED: PT OWN MED DRAWER 7, Y5N ONE ×2 (10:03→21:37)
[2020-09-14] MEDS ORDERED: INSULIN (NOVOLOG) ASPART 100 UNITS/ML 10ML VIAL ONE ×2 (16:25→21:35)
[2020-09-14] MEDS ORDERED: ATORVASTATIN CA 40 MG TABLET (FP) ONE (19:22)
[2020-09-14] MEDS: MELATONIN 5 MG TABLETS PO SCH (21:23)
[2020-09-14] MEDS: ATORVASTATIN CA 80 MG TABLET (FP) PO SCH (21:24)
[2020-09-14] MEDS: CLOPIDOGREL BISULFATE 75 MG TABLET (FP) PO SCH (21:24)
[2020-09-15] MEDS: INSULIN SLIDING SCALE (NOVOLOG) 1 VIAL SQ SCH (07:48)
[2020-09-15] MEDS ORDERED: PT OWN MED DRAWER 7, Y5N ONE (08:38)
[2020-09-15] MEDS: NICOTINE 7 MG/24 HOURS TOPICAL PATCH TD SCH (09:06)
[2020-09-15] MEDS: TORSEMIDE 20 MG TABLET (FP) PO SCH (09:06)
[2020-09-15] MEDS: CARVEDILOL 6.25 MG TABLET (FP) PO SCH (09:06)
[2020-09-15] MEDS: FLUoxetine HCL 20 MG CAPSULE PO SCH (09:06)
[2020-09-15] MEDS: THIAMINE HCL 100 MG TABLET (FP) PO SCH (09:08)
[2020-09-15] MEDS: APIXABAN 5 MG TABLET PO SCH (09:09)
[2020-09-15] MEDS: ACETAMINOPHEN 325 MG TABLET (FP) PO PRN (09:09)
[2020-09-15] MEDS: hydrOXYzine PAMOATE 25 MG CAPSULE (FP) PO PRN (09:09)
[2020-09-15] MEDS: SACUBITRIL/VALSARTAN 24 MG-26 MG TABLET PO SCH (09:19)
[2020-09-15 09:23] VITALS: BP 128/90; PULSE 79
[2020-09-15] MEDS: PRENATAL VITAMINS W/ FOLIC ACID TABLET (FP) PO SCH (10:13)
== END 2020-09-15 09:50 | disposition home or self-care (01) | DRG 895 ==
LOC: YASAS 12:20 → Y3E 12:31
PROVIDERS: ADMIT Allergy & Immunology; ATTEND Allergy & Immunology
PROC: HZ42ZZZ Group Counseling for Substance Abuse Treatment, Cognitive-Behavioral (ICD-10-PCS; principal; 2020-08-29)
DX: F10.20 Alcohol dependence, uncomplicated (principal); F14.20 Cocaine dependence, uncomplicated; F17.210 Nicotine dependence, cigarettes, uncomplicated; F41.8 Other specified anxiety disorders; F32.9 Major depressive disorder, single episode, unspecified; I25.10 Atherosclerotic heart disease of native coronary artery without angina pectoris; I10 Essential (primary) hypertension; Z95.1 Presence of aortocoronary bypass graft; Z95.0 Presence of cardiac pacemaker; I48.91 Unspecified atrial fibrillation; K74.60 Unspecified cirrhosis of liver; Z79.01 Long term (current) use of anticoagulants; Z86.16 Personal history of COVID-19; Z91.013 Allergy to seafood
CPT/HCPCS: 82962; C9803; U0003

== ENCOUNTER 2021-01-15 11:36 | Inpatient (IN) | payer OTHER ==
[2021-01-15] MEDS ORDERED: ACETAMINOPHEN 325 MG TABLET (FP) PO PRN ×2 (12:59)
[2021-01-15] MEDS ORDERED: ONDANSETRON *ODT* 4 MG TABLET SL PRN (12:59)
[2021-01-15] MEDS ORDERED: IBUPROFEN 400 MG TABLET (FP) PO PRN (12:59)
[2021-01-15] MEDS ORDERED: MAG HYDROX/AL HYDROX/SIMETH 30 ML UNIT-DOSE CUP PO PRN (12:59)
[2021-01-15] MEDS ORDERED: MAGNESIUM CITRATE 300 ML BOTTLE PO PRN (12:59)
[2021-01-15] MEDS ORDERED: METHOCARBAMOL 500 MG TABLET PO PRN (12:59)
[2021-01-15] MEDS ORDERED: MENTHOL/PHENOL 1 EACH UD MM PRN (12:59)
[2021-01-15] MEDS ORDERED: MAGNESIUM HYDROX 2400MG/30ML ORAL SUSPENSION 30 ML CUP PO PRN (12:59)
[2021-01-15] MEDS ORDERED: BISMUTH SUBSALICYLATE 524 MG/30 ML PO PRN (12:59)
[2021-01-15] MEDS ORDERED: NICOTINE 10 MG CARTRIDGE (INHALER) IH PRN (12:59)
[2021-01-15 13:15] VITALS: BMI 33.3
[2021-01-15] MEDS ORDERED: LISINOPRIL 10 MG TABLET PO ONE (13:19)
[2021-01-15] MEDS: diazePAM 5 MG TABLET PO PRN (15:31)
[2021-01-15] MEDS: hydrOXYzine PAMOATE 25 MG CAPSULE (FP) PO SCH ×3 (15:31→22:31)
[2021-01-15] MEDS: TORSEMIDE 20 MG TABLET (FP) PO SCH (15:33)
[2021-01-15] MEDS: PRENATAL VITAMINS W/ FOLIC ACID TABLET (FP) PO SCH (15:33)
[2021-01-15] MEDS: APIXABAN 5 MG TABLET PO SCH (15:33)
[2021-01-15 16:09] LABS: ALBUMIN 3.6 g/dl (3.4-5.0); BLOOD UREA NITROGEN 17.9 mg/dL (7-18); CALCIUM 8.4 mg/dL (8.5-10.1)
[2021-01-15 16:12] LABS: CREATININE 1.3 mg/dL (0.55-1.3)
[2021-01-15 16:14] LABS: BILIRUBIN,TOTAL 0.7 mg/dL (0.2-1); TOT PROT 7.8 g/dl (6.4-8.2)
[2021-01-15 16:18] LABS: HEMATOCRIT 38.7 % (35.4-49); HEMOGLOBIN 13.4 GM/dL (11.7-16.9); MCH 29.9 pg (25.7-33.7); MCHC 34.6 g/dl (32.0-35.9); MEAN CELL VOLUME 86.3 fl (80-96); PLATELET COUNT 265 10^3/uL (134-434); RBC 4.48 M/mm3 (4.00-5.60); RDW 17.1 % (11.9-15.9); WHITE BLOOD COUNT 5.5 K/mm3 (4.0-10.0)
[2021-01-15] MEDS: diazePAM 5 MG TABLET PO SCH ×2 (17:55→22:31)
[2021-01-15] MEDS ORDERED: SACUBITRIL/VALSARTAN 24 MG-26 MG TABLET PO SCH (22:00)
[2021-01-15] MEDS: ATORVASTATIN CA 80 MG TABLET (FP) PO SCH (22:30)
[2021-01-15] MEDS: THIAMINE HCL 100 MG TABLET (FP) PO SCH (22:30)
[2021-01-15] MEDS: CLOPIDOGREL BISULFATE 75 MG TABLET (FP) PO SCH (22:30)
[2021-01-15] MEDS: MELATONIN 5 MG TABLETS PO SCH (22:34)
[2021-01-16] MEDS: APIXABAN 5 MG TABLET PO SCH ×2 (01:16→22:10)
[2021-01-16] MEDS: hydrOXYzine PAMOATE 25 MG CAPSULE (FP) PO SCH ×5 (05:49→22:13)
[2021-01-16] MEDS: diazePAM 5 MG TABLET PO SCH ×4 (05:49→22:11)
[2021-01-16] MEDS: TORSEMIDE 20 MG TABLET (FP) PO SCH (10:10)
[2021-01-16] MEDS: PRENATAL VITAMINS W/ FOLIC ACID TABLET (FP) PO SCH (10:10)
[2021-01-16] MEDS: CARVEDILOL 25 MG TABLET (FP) PO SCH ×2 (10:10→22:10)
[2021-01-16] MEDS: FLUoxetine HCL 20 MG CAPSULE PO SCH (10:10)
[2021-01-16] MEDS ORDERED: APIXABAN 5 MG TABLET PO ONE (10:30)
[2021-01-16 11:17] LABS: HIV INTERPRETATION NEGATIVE (NEGATIVE)
[2021-01-16] MEDS: ATORVASTATIN CA 80 MG TABLET (FP) PO SCH (22:10)
[2021-01-16] MEDS: MELATONIN 5 MG TABLETS PO SCH (22:10)
[2021-01-16] MEDS: THIAMINE HCL 100 MG TABLET (FP) PO SCH (22:10)
[2021-01-16] MEDS: CLOPIDOGREL BISULFATE 75 MG TABLET (FP) PO SCH (22:11)
[2021-01-17] MEDS: hydrOXYzine PAMOATE 25 MG CAPSULE (FP) PO SCH ×5 (05:29→22:10)
[2021-01-17] MEDS: diazePAM 5 MG TABLET PO SCH ×3 (05:30→22:09)
[2021-01-17 10:05] LABS: INR 1.15 (0.83-1.09); PROTHROMBIN TIME (PATIENT) 13.9 SEC (9.7-13.0)
[2021-01-17] MEDS: PRENATAL VITAMINS W/ FOLIC ACID TABLET (FP) PO SCH (10:13)
[2021-01-17] MEDS: FLUoxetine HCL 20 MG CAPSULE PO SCH (10:13)
[2021-01-17] MEDS: APIXABAN 5 MG TABLET PO SCH ×2 (10:13→22:10)
[2021-01-17] MEDS: CARVEDILOL 25 MG TABLET (FP) PO SCH ×2 (10:14→22:10)
[2021-01-17] MEDS: diazePAM 5 MG TABLET PO PRN ×2 (10:15→17:49)
[2021-01-17] MEDS: TORSEMIDE 20 MG TABLET (FP) PO SCH (10:16)
[2021-01-17 10:27] LABS: ALBUMIN 3.2 g/dl (3.4-5.0); CALCIUM 8.3 mg/dL (8.5-10.1)
[2021-01-17 10:31] LABS: CREATININE 1.3 mg/dL (0.55-1.3); TOT PROT 7.1 g/dl (6.4-8.2)
[2021-01-17 10:38] LABS: BILIRUBIN,TOTAL 0.7 mg/dL (0.2-1)
[2021-01-17] MEDS: THIAMINE HCL 100 MG TABLET (FP) PO SCH (22:10)
[2021-01-17] MEDS: CLOPIDOGREL BISULFATE 75 MG TABLET (FP) PO SCH (22:10)
[2021-01-17] MEDS: ATORVASTATIN CA 80 MG TABLET (FP) PO SCH (22:10)
[2021-01-17] MEDS: MELATONIN 5 MG TABLETS PO SCH (22:10)
[2021-01-17] MEDS: INSULIN SLIDING SCALE (NOVOLOG) 1 VIAL SQ SCH (22:10)
[2021-01-18] MEDS: diazePAM 5 MG TABLET PO SCH ×2 (06:10→17:47)
[2021-01-18] MEDS: hydrOXYzine PAMOATE 25 MG CAPSULE (FP) PO SCH ×5 (06:10→22:36)
[2021-01-18] MEDS: INSULIN SLIDING SCALE (NOVOLOG) 1 VIAL SQ SCH ×4 (06:31→22:36)
[2021-01-18] MEDS: APIXABAN 5 MG TABLET PO SCH ×2 (10:12→22:36)
[2021-01-18] MEDS: CARVEDILOL 25 MG TABLET (FP) PO SCH ×2 (10:12→22:36)
[2021-01-18] MEDS: FLUoxetine HCL 20 MG CAPSULE PO SCH (10:12)
[2021-01-18] MEDS: TORSEMIDE 20 MG TABLET (FP) PO SCH (10:12)
[2021-01-18] MEDS: PRENATAL VITAMINS W/ FOLIC ACID TABLET (FP) PO SCH (10:12)
[2021-01-18] MEDS: diazePAM 5 MG TABLET PO PRN (10:13)
[2021-01-18] MEDS: CLOPIDOGREL BISULFATE 75 MG TABLET (FP) PO SCH (22:35)
[2021-01-18] MEDS: ATORVASTATIN CA 80 MG TABLET (FP) PO SCH (22:35)
[2021-01-18] MEDS: THIAMINE HCL 100 MG TABLET (FP) PO SCH (22:36)
[2021-01-18] MEDS: SACUBITRIL/VALSARTAN 24 MG-26 MG TABLET PO SCH (22:36)
[2021-01-18] MEDS: MELATONIN 5 MG TABLETS PO SCH (22:36)
[2021-01-19] MEDS ORDERED: diazePAM 5 MG TABLET PO ONE (06:00)
[2021-01-19] MEDS: hydrOXYzine PAMOATE 25 MG CAPSULE (FP) PO SCH ×3 (06:13→14:17)
[2021-01-19] MEDS: INSULIN SLIDING SCALE (NOVOLOG) 1 VIAL SQ SCH ×2 (06:16→11:44)
[2021-01-19] MEDS: TORSEMIDE 20 MG TABLET (FP) PO SCH (10:25)
[2021-01-19] MEDS: FLUoxetine HCL 20 MG CAPSULE PO SCH (10:25)
[2021-01-19] MEDS: CARVEDILOL 25 MG TABLET (FP) PO SCH (10:25)
[2021-01-19] MEDS: SACUBITRIL/VALSARTAN 24 MG-26 MG TABLET PO SCH (10:25)
[2021-01-19] MEDS: PRENATAL VITAMINS W/ FOLIC ACID TABLET (FP) PO SCH (10:25)
[2021-01-19] MEDS: APIXABAN 5 MG TABLET PO SCH (10:26)
[2021-01-19 13:04] VITALS: BP 90/52; PULSE 81; TEMP 96.8
== END 2021-01-19 14:46 | disposition other institution (70) | DRG 897 ==
LOC: YASAS 11:36 → Y3N 13:57
PROVIDERS: ADMIT Allergy & Immunology; ATTEND Allergy & Immunology
PROC: HZ2ZZZZ Detoxification Services for Substance Abuse Treatment (ICD-10-PCS; principal; 2021-01-15)
DX: F10.230 Alcohol dependence with withdrawal, uncomplicated (principal); F14.20 Cocaine dependence, uncomplicated; F19.282 Other psychoactive substance dependence with psychoactive substance-induced sleep disorder; I25.810 Atherosclerosis of coronary artery bypass graft(s) without angina pectoris; F17.210 Nicotine dependence, cigarettes, uncomplicated; F32.9 Major depressive disorder, single episode, unspecified; F19.24 Other psychoactive substance dependence with psychoactive substance-induced mood disorder; I10 Essential (primary) hypertension; K70.30 Alcoholic cirrhosis of liver without ascites; I48.91 Unspecified atrial fibrillation; E11.9 Type 2 diabetes mellitus without complications; Z95.1 Presence of aortocoronary bypass graft; Z95.0 Presence of cardiac pacemaker; Z86.16 Personal history of COVID-19; Z87.891 Personal history of nicotine dependence; Z86.11 Personal history of tuberculosis; Z91.013 Allergy to seafood; Z56.0 Unemployment, unspecified
CPT/HCPCS: 36415; 71045-TC-FY; 80053; 82947; 82962; 83036; 85027; 85610; 86780; 87389; C9803; U0003; U0005

== ENCOUNTER 2021-01-19 14:51 | Inpatient (IN) | payer OTHER ==
[2021-01-19] MEDS ORDERED: guaiFENesin 200 MG/10 ML 10 ML UNIT-DOSE CUPS PO PRN (15:28)
[2021-01-19] MEDS ORDERED: MAGNESIUM HYDROX 2400MG/30ML ORAL SUSPENSION 30 ML CUP PO PRN (15:28)
[2021-01-19] MEDS ORDERED: IBUPROFEN 400 MG TABLET (FP) PO PRN (15:28)
[2021-01-19] MEDS ORDERED: NICOTINE 10 MG CARTRIDGE (INHALER) IH PRN (15:28)
[2021-01-19] MEDS ORDERED: LOPERAMIDE HCL 2 MG CAPSULE PO PRN (15:28)
[2021-01-19] MEDS ORDERED: MAGNESIUM CITRATE 300 ML BOTTLE PO PRN (15:28)
[2021-01-19] MEDS ORDERED: MAG HYDROX/AL HYDROX/SIMETH 30 ML UNIT-DOSE CUP PO PRN (15:28)
[2021-01-19] MEDS ORDERED: P-EPHED 60MG/TRIPROLIDI 2.5MG TABLET PO PRN (15:28)
[2021-01-19] MEDS: INSULIN SLIDING SCALE (NOVOLOG) 1 VIAL SQ SCH ×2 (17:14→21:41)
[2021-01-19] MEDS ORDERED: ATORVASTATIN CA 40 MG TABLET (FP) ONE (20:16)
[2021-01-19] MEDS: MELATONIN 5 MG TABLETS PO SCH (21:36)
[2021-01-19] MEDS: ATORVASTATIN CA 80 MG TABLET (FP) PO SCH (21:36)
[2021-01-19] MEDS: APIXABAN 5 MG TABLET PO SCH (21:37)
[2021-01-19] MEDS: SACUBITRIL/VALSARTAN 24 MG-26 MG TABLET PO SCH (21:37)
[2021-01-19] MEDS: THIAMINE HCL 100 MG TABLET (FP) PO SCH (21:37)
[2021-01-19] MEDS: CLOPIDOGREL BISULFATE 75 MG TABLET (FP) PO SCH (21:37)
[2021-01-19] MEDS: CARVEDILOL 25 MG TABLET (FP) PO SCH (21:37)
[2021-01-19] MEDS: hydrOXYzine PAMOATE 25 MG CAPSULE (FP) PO PRN (21:38)
[2021-01-20] MEDS: INSULIN SLIDING SCALE (NOVOLOG) 1 VIAL SQ SCH ×4 (06:08→22:00)
[2021-01-20] MEDS: FLUoxetine HCL 20 MG CAPSULE PO SCH (10:04)
[2021-01-20] MEDS: hydrOXYzine PAMOATE 25 MG CAPSULE (FP) PO PRN ×3 (10:04→20:52)
[2021-01-20] MEDS: PRENATAL VITAMINS W/ FOLIC ACID TABLET (FP) PO SCH (10:04)
[2021-01-20] MEDS: CARVEDILOL 25 MG TABLET (FP) PO SCH ×2 (10:04→21:57)
[2021-01-20] MEDS: NICOTINE 7 MG/24 HOURS TOPICAL PATCH TD SCH (10:05)
[2021-01-20] MEDS: TORSEMIDE 20 MG TABLET (FP) PO SCH (10:06)
[2021-01-20] MEDS: SACUBITRIL/VALSARTAN 24 MG-26 MG TABLET PO SCH ×2 (10:06→21:58)
[2021-01-20] MEDS: APIXABAN 5 MG TABLET PO SCH ×2 (10:06→21:58)
[2021-01-20] MEDS ORDERED: INSULIN (NOVOLOG) ASPART 100 UNITS/ML 10ML VIAL ONE (12:01)
[2021-01-20] MEDS ORDERED: ATORVASTATIN CA 40 MG TABLET (FP) ONE (20:21)
[2021-01-20] MEDS: MENTHOL/PHENOL 1 EACH UD MM PRN (20:52)
[2021-01-20] MEDS: THIAMINE HCL 100 MG TABLET (FP) PO SCH (21:56)
[2021-01-20] MEDS: CLOPIDOGREL BISULFATE 75 MG TABLET (FP) PO SCH (21:57)
[2021-01-20] MEDS: MELATONIN 5 MG TABLETS PO SCH (21:59)
[2021-01-20] MEDS: ATORVASTATIN CA 80 MG TABLET (FP) PO SCH (21:59)
[2021-01-21] MEDS: MENTHOL/PHENOL 1 EACH UD MM PRN ×4 (02:25→22:23)
[2021-01-21] MEDS: INSULIN SLIDING SCALE (NOVOLOG) 1 VIAL SQ SCH ×4 (06:42→22:20)
[2021-01-21] MEDS: hydrOXYzine PAMOATE 25 MG CAPSULE (FP) PO PRN ×3 (06:44→22:23)
[2021-01-21] MEDS: FLUoxetine HCL 20 MG CAPSULE PO SCH (09:55)
[2021-01-21] MEDS: CARVEDILOL 25 MG TABLET (FP) PO SCH ×2 (09:55→22:21)
[2021-01-21] MEDS: PRENATAL VITAMINS W/ FOLIC ACID TABLET (FP) PO SCH (09:55)
[2021-01-21] MEDS: SACUBITRIL/VALSARTAN 24 MG-26 MG TABLET PO SCH ×2 (09:56→22:23)
[2021-01-21] MEDS: APIXABAN 5 MG TABLET PO SCH ×2 (09:56→22:21)
[2021-01-21] MEDS: TORSEMIDE 20 MG TABLET (FP) PO SCH (09:56)
[2021-01-21] MEDS: NICOTINE 7 MG/24 HOURS TOPICAL PATCH TD SCH (09:57)
[2021-01-21] MEDS ORDERED: INSULIN (NOVOLOG) ASPART 100 UNITS/ML 10ML VIAL ONE ×2 (12:04→22:47)
[2021-01-21] MEDS: ACETAMINOPHEN 325 MG TABLET (FP) PO PRN ×2 (12:30→17:37)
[2021-01-21] MEDS ORDERED: ATORVASTATIN CA 20 MG TABLET (FP) ONE (20:11)
[2021-01-21] MEDS: CLOPIDOGREL BISULFATE 75 MG TABLET (FP) PO SCH (22:20)
[2021-01-21] MEDS: THIAMINE HCL 100 MG TABLET (FP) PO SCH (22:22)
[2021-01-21] MEDS: ATORVASTATIN CA 80 MG TABLET (FP) PO SCH (22:22)
[2021-01-21] MEDS: MELATONIN 5 MG TABLETS PO SCH (22:22)
[2021-01-22] MEDS ORDERED: INSULIN (NOVOLOG) ASPART 100 UNITS/ML 10ML VIAL ONE ×2 (03:00→20:43)
[2021-01-22] MEDS: INSULIN SLIDING SCALE (NOVOLOG) 1 VIAL SQ SCH ×4 (07:06→21:57)
[2021-01-22] MEDS: hydrOXYzine PAMOATE 25 MG CAPSULE (FP) PO PRN ×3 (07:08→21:50)
[2021-01-22] MEDS: ACETAMINOPHEN 325 MG TABLET (FP) PO PRN ×2 (07:08→11:36)
[2021-01-22] MEDS ORDERED: PT OWN MED DRAWER 7, Y5N ONE ×2 (10:24→20:45)
[2021-01-22] MEDS: CARVEDILOL 25 MG TABLET (FP) PO SCH ×2 (10:24→21:49)
[2021-01-22] MEDS: PRENATAL VITAMINS W/ FOLIC ACID TABLET (FP) PO SCH (10:24)
[2021-01-22] MEDS: FLUoxetine HCL 20 MG CAPSULE PO SCH (10:24)
[2021-01-22] MEDS: NICOTINE 7 MG/24 HOURS TOPICAL PATCH TD SCH (10:25)
[2021-01-22] MEDS: APIXABAN 5 MG TABLET PO SCH ×2 (10:25→23:55)
[2021-01-22] MEDS: SACUBITRIL/VALSARTAN 24 MG-26 MG TABLET PO SCH ×2 (10:26→21:49)
[2021-01-22] MEDS: TORSEMIDE 20 MG TABLET (FP) PO SCH (10:26)
[2021-01-22] MEDS: MENTHOL/PHENOL 1 EACH UD MM PRN (20:24)
[2021-01-22] MEDS ORDERED: ATORVASTATIN CA 40 MG TABLET (FP) ONE (20:43)
[2021-01-22] MEDS: CLOPIDOGREL BISULFATE 75 MG TABLET (FP) PO SCH (21:49)
[2021-01-22] MEDS: THIAMINE HCL 100 MG TABLET (FP) PO SCH (21:49)
[2021-01-22] MEDS: ATORVASTATIN CA 80 MG TABLET (FP) PO SCH (21:49)
[2021-01-22] MEDS: MELATONIN 5 MG TABLETS PO SCH (21:52)
[2021-01-23] MEDS: hydrOXYzine PAMOATE 25 MG CAPSULE (FP) PO PRN ×3 (06:18→21:48)
[2021-01-23] MEDS: INSULIN SLIDING SCALE (NOVOLOG) 1 VIAL SQ SCH ×4 (06:18→21:45)
[2021-01-23] MEDS: ACETAMINOPHEN 325 MG TABLET (FP) PO PRN ×3 (06:19→21:50)
[2021-01-23] MEDS: FLUoxetine HCL 20 MG CAPSULE PO SCH (10:08)
[2021-01-23] MEDS: CARVEDILOL 25 MG TABLET (FP) PO SCH ×2 (10:08→21:47)
[2021-01-23] MEDS: TORSEMIDE 20 MG TABLET (FP) PO SCH (10:08)
[2021-01-23] MEDS: SACUBITRIL/VALSARTAN 24 MG-26 MG TABLET PO SCH ×2 (10:10→21:47)
[2021-01-23] MEDS: APIXABAN 5 MG TABLET PO SCH ×2 (10:10→21:47)
[2021-01-23] MEDS: NICOTINE 7 MG/24 HOURS TOPICAL PATCH TD SCH (10:11)
[2021-01-23] MEDS: PRENATAL VITAMINS W/ FOLIC ACID TABLET (FP) PO SCH (10:11)
[2021-01-23] MEDS ORDERED: ATORVASTATIN CA 40 MG TABLET (FP) ONE (21:00)
[2021-01-23] MEDS ORDERED: PT OWN MED DRAWER 7, Y5N ONE (21:01)
[2021-01-23] MEDS: ATORVASTATIN CA 80 MG TABLET (FP) PO SCH (21:47)
[2021-01-23] MEDS: CLOPIDOGREL BISULFATE 75 MG TABLET (FP) PO SCH (21:48)
[2021-01-23] MEDS: THIAMINE HCL 100 MG TABLET (FP) PO SCH (21:48)
[2021-01-23] MEDS: MELATONIN 5 MG TABLETS PO SCH (21:50)
[2021-01-24] MEDS: INSULIN SLIDING SCALE (NOVOLOG) 1 VIAL SQ SCH ×4 (07:04→22:14)
[2021-01-24] MEDS: ACETAMINOPHEN 325 MG TABLET (FP) PO PRN ×2 (07:06→22:20)
[2021-01-24] MEDS: hydrOXYzine PAMOATE 25 MG CAPSULE (FP) PO PRN ×3 (07:07→22:19)
[2021-01-24] MEDS ORDERED: PT OWN MED DRAWER 7, Y5N ONE ×4 (08:44→22:17)
[2021-01-24] MEDS: FLUoxetine HCL 20 MG CAPSULE PO SCH (10:30)
[2021-01-24] MEDS: CARVEDILOL 25 MG TABLET (FP) PO SCH ×2 (10:30→22:16)
[2021-01-24] MEDS: NICOTINE 7 MG/24 HOURS TOPICAL PATCH TD SCH (10:31)
[2021-01-24] MEDS: PRENATAL VITAMINS W/ FOLIC ACID TABLET (FP) PO SCH (10:31)
[2021-01-24] MEDS: TORSEMIDE 20 MG TABLET (FP) PO SCH (10:32)
[2021-01-24] MEDS: SACUBITRIL/VALSARTAN 24 MG-26 MG TABLET PO SCH ×2 (10:33→22:18)
[2021-01-24] MEDS ORDERED: INSULIN (NOVOLOG) ASPART 100 UNITS/ML 10ML VIAL ONE (12:19)
[2021-01-24] MEDS: APIXABAN 5 MG TABLET PO SCH ×2 (15:01→22:18)
[2021-01-24] MEDS ORDERED: ATORVASTATIN CA 40 MG TABLET (FP) ONE (21:02)
[2021-01-24] MEDS: THIAMINE HCL 100 MG TABLET (FP) PO SCH (22:16)
[2021-01-24] MEDS: CLOPIDOGREL BISULFATE 75 MG TABLET (FP) PO SCH (22:16)
[2021-01-24] MEDS: MELATONIN 5 MG TABLETS PO SCH (22:16)
[2021-01-24] MEDS: ATORVASTATIN CA 80 MG TABLET (FP) PO SCH (22:16)
[2021-01-25] MEDS: INSULIN SLIDING SCALE (NOVOLOG) 1 VIAL SQ SCH ×4 (07:29→22:29)
[2021-01-25] MEDS ORDERED: PT OWN MED DRAWER 7, Y5N ONE ×3 (10:06→22:53)
[2021-01-25] MEDS: PRENATAL VITAMINS W/ FOLIC ACID TABLET (FP) PO SCH (10:17)
[2021-01-25] MEDS: FLUoxetine HCL 20 MG CAPSULE PO SCH (10:17)
[2021-01-25] MEDS: APIXABAN 5 MG TABLET PO SCH ×2 (10:17→22:28)
[2021-01-25] MEDS: CARVEDILOL 25 MG TABLET (FP) PO SCH ×2 (10:17→22:28)
[2021-01-25] MEDS: TORSEMIDE 20 MG TABLET (FP) PO SCH (10:18)
[2021-01-25] MEDS: SACUBITRIL/VALSARTAN 24 MG-26 MG TABLET PO SCH ×2 (10:18→22:28)
[2021-01-25] MEDS: hydrOXYzine PAMOATE 25 MG CAPSULE (FP) PO PRN ×2 (10:19→22:28)
[2021-01-25] MEDS: NICOTINE 7 MG/24 HOURS TOPICAL PATCH TD SCH (10:19)
[2021-01-25] MEDS ORDERED: INSULIN (NOVOLOG) ASPART 100 UNITS/ML 10ML VIAL ONE ×2 (17:14→22:26)
[2021-01-25] MEDS ORDERED: ATORVASTATIN CA 40 MG TABLET (FP) ONE (20:27)
[2021-01-25] MEDS: THIAMINE HCL 100 MG TABLET (FP) PO SCH (22:28)
[2021-01-25] MEDS: MELATONIN 5 MG TABLETS PO SCH (22:28)
[2021-01-25] MEDS: ATORVASTATIN CA 80 MG TABLET (FP) PO SCH (22:28)
[2021-01-25] MEDS: CLOPIDOGREL BISULFATE 75 MG TABLET (FP) PO SCH (22:28)
[2021-01-25] MEDS: ACETAMINOPHEN 325 MG TABLET (FP) PO PRN (22:31)
[2021-01-26] MEDS ORDERED: INSULIN (NOVOLOG) ASPART 100 UNITS/ML 10ML VIAL ONE ×3 (06:42→17:15)
[2021-01-26] MEDS: INSULIN SLIDING SCALE (NOVOLOG) 1 VIAL SQ SCH ×4 (06:44→21:41)
[2021-01-26] MEDS ORDERED: PT OWN MED DRAWER 7, Y5N ONE (08:51)
[2021-01-26] MEDS: FLUoxetine HCL 20 MG CAPSULE PO SCH (10:06)
[2021-01-26] MEDS: CARVEDILOL 25 MG TABLET (FP) PO SCH ×2 (10:06→21:43)
[2021-01-26] MEDS: TORSEMIDE 20 MG TABLET (FP) PO SCH (10:06)
[2021-01-26] MEDS: APIXABAN 5 MG TABLET PO SCH ×2 (10:06→21:43)
[2021-01-26] MEDS: SACUBITRIL/VALSARTAN 24 MG-26 MG TABLET PO SCH ×2 (10:07→21:43)
[2021-01-26] MEDS: PRENATAL VITAMINS W/ FOLIC ACID TABLET (FP) PO SCH (10:07)
[2021-01-26] MEDS: NICOTINE 7 MG/24 HOURS TOPICAL PATCH TD SCH (10:07)
[2021-01-26] MEDS: hydrOXYzine PAMOATE 25 MG CAPSULE (FP) PO PRN ×2 (10:09→21:44)
[2021-01-26] MEDS ORDERED: ATORVASTATIN CA 40 MG TABLET (FP) ONE (20:14)
[2021-01-26] MEDS: CLOPIDOGREL BISULFATE 75 MG TABLET (FP) PO SCH (21:42)
[2021-01-26] MEDS: ATORVASTATIN CA 80 MG TABLET (FP) PO SCH (21:43)
[2021-01-26] MEDS: THIAMINE HCL 100 MG TABLET (FP) PO SCH (21:43)
[2021-01-26] MEDS: MELATONIN 5 MG TABLETS PO SCH (21:43)
[2021-01-27] MEDS ORDERED: INSULIN (NOVOLOG) ASPART 100 UNITS/ML 10ML VIAL ONE ×4 (07:04→22:10)
[2021-01-27] MEDS: INSULIN SLIDING SCALE (NOVOLOG) 1 VIAL SQ SCH ×4 (07:05→21:30)
[2021-01-27] MEDS: NICOTINE 7 MG/24 HOURS TOPICAL PATCH TD SCH (09:37)
[2021-01-27] MEDS: PRENATAL VITAMINS W/ FOLIC ACID TABLET (FP) PO SCH (09:37)
[2021-01-27] MEDS: CARVEDILOL 25 MG TABLET (FP) PO SCH ×2 (09:38→21:28)
[2021-01-27] MEDS: APIXABAN 5 MG TABLET PO SCH ×2 (09:38→21:29)
[2021-01-27] MEDS: SACUBITRIL/VALSARTAN 24 MG-26 MG TABLET PO SCH ×2 (09:39→21:30)
[2021-01-27] MEDS: TORSEMIDE 20 MG TABLET (FP) PO SCH (09:39)
[2021-01-27] MEDS: hydrOXYzine PAMOATE 25 MG CAPSULE (FP) PO PRN ×2 (09:41→21:31)
[2021-01-27] MEDS: FLUoxetine HCL 20 MG CAPSULE PO SCH (09:41)
[2021-01-27] MEDS ORDERED: ATORVASTATIN CA 40 MG TABLET (FP) ONE (19:48)
[2021-01-27] MEDS: THIAMINE HCL 100 MG TABLET (FP) PO SCH (21:28)
[2021-01-27] MEDS: CLOPIDOGREL BISULFATE 75 MG TABLET (FP) PO SCH (21:28)
[2021-01-27] MEDS: MELATONIN 5 MG TABLETS PO SCH (21:28)
[2021-01-27] MEDS: ATORVASTATIN CA 80 MG TABLET (FP) PO SCH (21:29)
[2021-01-28] MEDS: INSULIN SLIDING SCALE (NOVOLOG) 1 VIAL SQ SCH ×4 (06:51→21:37)
[2021-01-28] MEDS ORDERED: INSULIN (NOVOLOG) ASPART 100 UNITS/ML 10ML VIAL ONE ×2 (06:55→22:35)
[2021-01-28] MEDS: hydrOXYzine PAMOATE 25 MG CAPSULE (FP) PO PRN ×2 (10:29→21:38)
[2021-01-28] MEDS: PRENATAL VITAMINS W/ FOLIC ACID TABLET (FP) PO SCH (10:29)
[2021-01-28] MEDS: CARVEDILOL 25 MG TABLET (FP) PO SCH ×2 (10:29→21:36)
[2021-01-28] MEDS: FLUoxetine HCL 20 MG CAPSULE PO SCH (10:29)
[2021-01-28] MEDS: APIXABAN 5 MG TABLET PO SCH ×2 (10:30→21:36)
[2021-01-28] MEDS: TORSEMIDE 20 MG TABLET (FP) PO SCH (10:30)
[2021-01-28] MEDS: NICOTINE 7 MG/24 HOURS TOPICAL PATCH TD SCH (10:31)
[2021-01-28] MEDS: SACUBITRIL/VALSARTAN 24 MG-26 MG TABLET PO SCH ×2 (10:31→21:37)
[2021-01-28] MEDS ORDERED: ATORVASTATIN CA 40 MG TABLET (FP) ONE (20:29)
[2021-01-28] MEDS: MELATONIN 5 MG TABLETS PO SCH (21:35)
[2021-01-28] MEDS: THIAMINE HCL 100 MG TABLET (FP) PO SCH (21:35)
[2021-01-28] MEDS: ATORVASTATIN CA 80 MG TABLET (FP) PO SCH (21:37)
[2021-01-28] MEDS: CLOPIDOGREL BISULFATE 75 MG TABLET (FP) PO SCH (21:38)
[2021-01-29] MEDS: INSULIN SLIDING SCALE (NOVOLOG) 1 VIAL SQ SCH ×4 (08:24→21:49)
[2021-01-29] MEDS: PRENATAL VITAMINS W/ FOLIC ACID TABLET (FP) PO SCH (10:13)
[2021-01-29] MEDS: CARVEDILOL 25 MG TABLET (FP) PO SCH ×2 (10:14→21:50)
[2021-01-29] MEDS: FLUoxetine HCL 20 MG CAPSULE PO SCH (10:14)
[2021-01-29] MEDS: APIXABAN 5 MG TABLET PO SCH ×2 (10:15→21:50)
[2021-01-29] MEDS: TORSEMIDE 20 MG TABLET (FP) PO SCH (10:15)
[2021-01-29] MEDS: SACUBITRIL/VALSARTAN 24 MG-26 MG TABLET PO SCH ×2 (10:16→21:52)
[2021-01-29] MEDS: NICOTINE 7 MG/24 HOURS TOPICAL PATCH TD SCH (10:16)
[2021-01-29] MEDS: hydrOXYzine PAMOATE 25 MG CAPSULE (FP) PO PRN ×2 (10:17→21:53)
[2021-01-29] MEDS ORDERED: ATORVASTATIN CA 40 MG TABLET (FP) ONE (20:47)
[2021-01-29] MEDS ORDERED: PT OWN MED DRAWER 7, Y5N ONE ×2 (20:48→20:49)
[2021-01-29] MEDS: MELATONIN 5 MG TABLETS PO SCH (21:50)
[2021-01-29] MEDS: THIAMINE HCL 100 MG TABLET (FP) PO SCH (21:50)
[2021-01-29] MEDS: CLOPIDOGREL BISULFATE 75 MG TABLET (FP) PO SCH (21:51)
[2021-01-29] MEDS: ATORVASTATIN CA 80 MG TABLET (FP) PO SCH (21:53)
[2021-01-30] MEDS: INSULIN SLIDING SCALE (NOVOLOG) 1 VIAL SQ SCH ×4 (06:37→21:53)
[2021-01-30] MEDS ORDERED: INSULIN (NOVOLOG) ASPART 100 UNITS/ML 10ML VIAL ONE ×3 (07:06→22:09)
[2021-01-30] MEDS: CARVEDILOL 25 MG TABLET (FP) PO SCH ×2 (10:06→21:52)
[2021-01-30] MEDS: FLUoxetine HCL 20 MG CAPSULE PO SCH (10:06)
[2021-01-30] MEDS: APIXABAN 5 MG TABLET PO SCH ×2 (10:07→21:52)
[2021-01-30] MEDS: TORSEMIDE 20 MG TABLET (FP) PO SCH (10:07)
[2021-01-30] MEDS: NICOTINE 7 MG/24 HOURS TOPICAL PATCH TD SCH (10:07)
[2021-01-30] MEDS: PRENATAL VITAMINS W/ FOLIC ACID TABLET (FP) PO SCH (10:07)
[2021-01-30] MEDS: SACUBITRIL/VALSARTAN 24 MG-26 MG TABLET PO SCH ×2 (10:08→21:52)
[2021-01-30] MEDS: hydrOXYzine PAMOATE 25 MG CAPSULE (FP) PO PRN ×2 (10:09→21:53)
[2021-01-30] MEDS ORDERED: PT OWN MED DRAWER 7, Y5N ONE (20:25)
[2021-01-30] MEDS: CLOPIDOGREL BISULFATE 75 MG TABLET (FP) PO SCH (21:52)
[2021-01-30] MEDS: ATORVASTATIN CA 80 MG TABLET (FP) PO SCH (21:52)
[2021-01-30] MEDS: MELATONIN 5 MG TABLETS PO SCH (21:52)
[2021-01-30] MEDS: THIAMINE HCL 100 MG TABLET (FP) PO SCH (21:52)
[2021-01-31] MEDS: INSULIN SLIDING SCALE (NOVOLOG) 1 VIAL SQ SCH ×4 (07:34→21:47)
[2021-01-31] MEDS ORDERED: PT OWN MED DRAWER 7, Y5N ONE ×4 (08:39→21:51)
[2021-01-31] MEDS: TORSEMIDE 20 MG TABLET (FP) PO SCH (10:20)
[2021-01-31] MEDS: FLUoxetine HCL 20 MG CAPSULE PO SCH (10:20)
[2021-01-31] MEDS: NICOTINE 7 MG/24 HOURS TOPICAL PATCH TD SCH (10:20)
[2021-01-31] MEDS: CARVEDILOL 25 MG TABLET (FP) PO SCH ×2 (10:20→21:47)
[2021-01-31] MEDS: PRENATAL VITAMINS W/ FOLIC ACID TABLET (FP) PO SCH (10:20)
[2021-01-31] MEDS: APIXABAN 5 MG TABLET PO SCH ×2 (10:20→22:20)
[2021-01-31] MEDS: SACUBITRIL/VALSARTAN 24 MG-26 MG TABLET PO SCH ×2 (10:21→21:48)
[2021-01-31] MEDS: hydrOXYzine PAMOATE 25 MG CAPSULE (FP) PO PRN ×2 (10:21→21:52)
[2021-01-31] MEDS ORDERED: INSULIN (NOVOLOG) ASPART 100 UNITS/ML 10ML VIAL ONE ×2 (11:52→16:53)
[2021-01-31] MEDS ORDERED: ATORVASTATIN CA 40 MG TABLET (FP) ONE (17:53)
[2021-01-31] MEDS: THIAMINE HCL 100 MG TABLET (FP) PO SCH (21:47)
[2021-01-31] MEDS: CLOPIDOGREL BISULFATE 75 MG TABLET (FP) PO SCH (21:48)
[2021-01-31] MEDS: ATORVASTATIN CA 80 MG TABLET (FP) PO SCH (21:48)
[2021-01-31] MEDS: MELATONIN 5 MG TABLETS PO SCH (21:48)
[2021-01-31] MEDS: ACETAMINOPHEN 325 MG TABLET (FP) PO PRN (22:20)
[2021-02-01] MEDS: INSULIN SLIDING SCALE (NOVOLOG) 1 VIAL SQ SCH ×4 (07:34→21:40)
[2021-02-01] MEDS: CARVEDILOL 25 MG TABLET (FP) PO SCH ×2 (10:18→21:36)
[2021-02-01] MEDS: FLUoxetine HCL 20 MG CAPSULE PO SCH (10:18)
[2021-02-01] MEDS: PRENATAL VITAMINS W/ FOLIC ACID TABLET (FP) PO SCH (10:18)
[2021-02-01] MEDS: SACUBITRIL/VALSARTAN 24 MG-26 MG TABLET PO SCH ×2 (10:19→21:38)
[2021-02-01] MEDS: hydrOXYzine PAMOATE 25 MG CAPSULE (FP) PO PRN ×2 (10:19→21:37)
[2021-02-01] MEDS: TORSEMIDE 20 MG TABLET (FP) PO SCH (10:20)
[2021-02-01] MEDS: NICOTINE 7 MG/24 HOURS TOPICAL PATCH TD SCH (10:22)
[2021-02-01] MEDS: APIXABAN 5 MG TABLET PO SCH ×2 (11:07→21:37)
[2021-02-01] MEDS ORDERED: INSULIN (NOVOLOG) ASPART 100 UNITS/ML 10ML VIAL ONE ×2 (11:09→17:09)
[2021-02-01] MEDS ORDERED: ATORVASTATIN CA 40 MG TABLET (FP) ONE (18:43)
[2021-02-01] MEDS ORDERED: PT OWN MED DRAWER 7, Y5N ONE (18:44)
[2021-02-01] MEDS: ATORVASTATIN CA 80 MG TABLET (FP) PO SCH (21:36)
[2021-02-01] MEDS: THIAMINE HCL 100 MG TABLET (FP) PO SCH (21:36)
[2021-02-01] MEDS: CLOPIDOGREL BISULFATE 75 MG TABLET (FP) PO SCH (21:36)
[2021-02-01] MEDS: MELATONIN 5 MG TABLETS PO SCH (21:37)
[2021-02-02] MEDS ORDERED: PT OWN MED DRAWER 7, Y5N ONE ×2 (04:22→08:51)
[2021-02-02] MEDS: INSULIN SLIDING SCALE (NOVOLOG) 1 VIAL SQ SCH (06:41)
[2021-02-02 07:11] VITALS: BP 109/74; PULSE 83; TEMP 98.6
[2021-02-02] MEDS: FLUoxetine HCL 20 MG CAPSULE PO SCH (10:04)
[2021-02-02] MEDS: SACUBITRIL/VALSARTAN 24 MG-26 MG TABLET PO SCH (10:04)
[2021-02-02] MEDS: CARVEDILOL 25 MG TABLET (FP) PO SCH (10:04)
[2021-02-02] MEDS: TORSEMIDE 20 MG TABLET (FP) PO SCH (10:05)
[2021-02-02] MEDS: APIXABAN 5 MG TABLET PO SCH (10:05)
[2021-02-02] MEDS: PRENATAL VITAMINS W/ FOLIC ACID TABLET (FP) PO SCH (10:06)
[2021-02-02] MEDS: NICOTINE 7 MG/24 HOURS TOPICAL PATCH TD SCH (10:06)
[2021-02-02] MEDS: hydrOXYzine PAMOATE 25 MG CAPSULE (FP) PO PRN (10:07)
== END 2021-02-02 10:15 | disposition home or self-care (01) | DRG 895 ==
LOC: YASAS 14:51 → Y5N 14:54
PROVIDERS: ADMIT Allergy & Immunology; ATTEND Allergy & Immunology
PROC: HZ42ZZZ Group Counseling for Substance Abuse Treatment, Cognitive-Behavioral (ICD-10-PCS; principal; 2021-01-19)
DX: F10.20 Alcohol dependence, uncomplicated (principal); F14.20 Cocaine dependence, uncomplicated; I25.810 Atherosclerosis of coronary artery bypass graft(s) without angina pectoris; F17.210 Nicotine dependence, cigarettes, uncomplicated; F41.8 Other specified anxiety disorders; F32.9 Major depressive disorder, single episode, unspecified; E10.65 Type 1 diabetes mellitus with hyperglycemia; I10 Essential (primary) hypertension; I48.91 Unspecified atrial fibrillation; D64.9 Anemia, unspecified; E78.5 Hyperlipidemia, unspecified; Z79.4 Long term (current) use of insulin; Z86.16 Personal history of COVID-19; Z91.013 Allergy to seafood
CPT/HCPCS: 82962